=== PATIENT | female | born 1970 | race African-American/Black ===

== ENCOUNTER 2017-12-27 08:27 | Emergency (ER) | payer BC, OTHER ==
[~2017-12-27] VITALS: Ht 160 cm; Wt 70.6 kg
[2017-12-27 08:28] VITALS: BP 149/91
[2017-12-27] MEDS ORDERED: KETOROLAC 30 MG/1 ML IM ONE (09:00)
[2017-12-27] MEDS ORDERED: KETOROLAC 30 MG/1 ML ONE (09:02)
== END 2017-12-27 10:19 | disposition home or self-care (01) ==
LOC: ED 09:20
DX: S83.412A Sprain of medial collateral ligament of left knee, initial encounter (principal); M25.561 Pain in right knee; I10 Essential (primary) hypertension; W01.0XXA Fall on same level from slipping, tripping and stumbling without subsequent striking against object, initial encounter; Y93.89 Activity, other specified; Y92.89 Other specified places as the place of occurrence of the external cause; Y99.8 Other external cause status
CPT/HCPCS: 73564; 96372; 99284; J1885

== ENCOUNTER 2018-01-06 12:11 | Emergency (ER) | payer OTHER ==
[~2018-01-06] VITALS: Ht 160 cm; Wt 73.0 kg
[2018-01-06] MEDS ORDERED: METHOCARBAMOL 750 MG TABLET ONE (12:57)
[2018-01-06] MEDS ORDERED: KETOROLAC 30 MG/1 ML ONE (12:57)
[2018-01-06 13:45] VITALS: BP 112/64
[2018-01-06] MEDS ORDERED: KETOROLAC 60 MG/2 ML IM ONE (14:00)
[2018-01-06] MEDS ORDERED: METHOCARBAMOL 750 MG TABLET PO ONE (14:00)
== END 2018-01-06 13:47 | disposition home or self-care (01) ==
LOC: ED 13:30
DX: S39.012A Strain of muscle, fascia and tendon of lower back, initial encounter (principal); S46.812A Strain of other muscles, fascia and tendons at shoulder and upper arm level, left arm, initial encounter; I10 Essential (primary) hypertension; V49.49XA Driver injured in collision with other motor vehicles in traffic accident, initial encounter; Y93.89 Activity, other specified; Y92.89 Other specified places as the place of occurrence of the external cause; Y99.8 Other external cause status; D25.9 Leiomyoma of uterus, unspecified
CPT/HCPCS: 72110; 73030; 96372; 99284; J1885

== ENCOUNTER → 2018-05-16 | Outpatient (CLI) | payer OTHER | END | disposition home or self-care (01) | LOC: RAD 10:26 | PROVIDERS: ATTEND Neurological Surgery | DX: M50.00 Cervical disc disorder with myelopathy, unspecified cervical region (principal); I10 Essential (primary) hypertension | CPT/HCPCS: 72050 ==

== ENCOUNTER → 2018-06-23 | Outpatient (CLI) | payer OTHER | END | disposition home or self-care (01) | LOC: RAD 09:33 | PROVIDERS: ATTEND Neurological Surgery | DX: M50.00 Cervical disc disorder with myelopathy, unspecified cervical region (principal) | CPT/HCPCS: 72050 ==

== ENCOUNTER → 2018-07-26 | Outpatient (CLI) | payer OTHER | END | disposition home or self-care (01) | LOC: RAD 16:16 | PROVIDERS: ATTEND Neurological Surgery | DX: M50.00 Cervical disc disorder with myelopathy, unspecified cervical region (principal) | CPT/HCPCS: 72040 ==

== ENCOUNTER → 2018-10-17 | Outpatient (CLI) | payer OTHER | END | disposition home or self-care (01) | LOC: RAD 09:24 | PROVIDERS: ATTEND Neurological Surgery | DX: M47.12 Other spondylosis with myelopathy, cervical region (principal); M50.00 Cervical disc disorder with myelopathy, unspecified cervical region | CPT/HCPCS: 72050 ==

== ENCOUNTER 2018-12-07 13:08 | Inpatient (IN) | payer OTHER ==
[~2018-12-07] VITALS: Ht 162.6 cm; Wt 79.4 kg
[2018-12-07] MEDS ORDERED: KETOROLAC 30 MG/1 ML IVPush ONE (14:30)
[2018-12-07] MEDS ORDERED: HYDROmorphone 1 MG/ML, 1ML ONE ×2 (14:32→15:55)
[2018-12-07] MEDS ORDERED: KETOROLAC 30 MG/1 ML ONE (14:32)
[2018-12-07] MEDS: HYDROmorphone 2 MG/ML, 1ML IVPush PRN ×2 (14:50→15:57)
[2018-12-07 14:51] LABS: ALBUMIN 2.8 g/dL (3.4-5.0); ANION GAP 7 mmol/L (5-15); CALCIUM 9.1 mg/dL (8.5-10.1); CHLORIDE 100 mmol/L (98-107); CREATININE 1.08 mg/dL (0.55-1.02)
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
[2018-12-07 14:57] LABS: TROPONIN I 0.163 ng/mL (0.000-0.045)
[2018-12-07 15:17] LABS: MD YES; MEAN CORPUSCULAR HEMOGLOBIN 19.7 pg (27.0-34.8); MEAN CORPUSCULAR HGB CONC 30.1 g/dL (32.4-35.8); MEAN CORPUSCULAR VOLUME 65.5 fL (80-100); MEAN PLATELET VOLUME 7.8 fL (7.4-10.4); PLATELET COUNT 343 x10^3/uL (130-400); RED BLOOD COUNT 4.06 x10^6/uL (3.82-5.3); RED CELL DISTRIBUTION WIDTH 21.4 % (9.6-15.2)
[2018-12-07 15:20] LABS: ANISOCYTOSIS 3+; BASOS#(MANUAL) 0.07 x10^3/uL (0-0.1); BASOS% (MANUAL) 1 % (0-1); LYMPH#(MANUAL) 0.46 x10^3/uL (1-3.4); LYMPHS% (MANUAL) 7 % (22-44); MICROCYTOSIS 2+; MONOS#(MANUAL) 0.26 x10^3/uL (0.3-2.7); MONOS% (MANUAL) 4 % (2-9); SCHISTOCYTES 1+; SEG#(MANUAL) 5.81 x10^3/uL (1.8-6.8); SEGS% (MANUAL) 88 % (42-75)
[2018-12-07 15:21] LABS: OVALOCYTES 1+; POLYCHROMASIA 1+; TARGET CELLS 1+
[2018-12-07 15:22] LABS: HYPOCHROMIA 2+
[2018-12-07 15:23] LABS: <PLATELET ESTIMATE> ADEQUATE; <PLT MORPHOLOGY> NORMAL PLT MORPH
--- NOTE | 2018-12-07 15:50 | NUR ---
BREAK RN FOR PRIMARY RN JAQUAN. PT REQUESTING ADDITIONAL PAIN MEDICATION, RATES PAIN 8/10 "FROM MY LOW BACK DOWN TO MY LEFT ANKLE." TO MEDICATE PER MD ORDER. DISCUSSED VITALS WITH DR. CANDELARIA, AWARE OF PT HR, NO NEW ORDERS RECEIVED. VITALS OTHERWISE STABLE. CALL LIGHT IN REACH. FALL PRECAUTIONS IN PLACE. FAMILY AT BEDSIDE
--- NOTE | 2018-12-07 15:51 | NUR ---
PT DENIES URGE TO USE RESTROOM, AWARE UA SAMPLE NEEDED. DISCUSSED WITH DR. CANDELARIA, AWARE PT DENIES URGE TO PROVIDE UA. CONT PULSE OX, BP, CARDIAC MONITORS REMAIN IN PLACE. ST ON MONITOR. CALL LIGHT IN REACH.
--- NOTE | 2018-12-07 16:13 | NUR ---
BREAK RN. PT IN CT.
--- NOTE | 2018-12-07 16:15 | NUR ---
BREAK RN. BEDSIDE REPORT AND CARE BACK TO PRIMARY RN JAQUAN AT THIS TIME.
[2018-12-07] MEDS ORDERED: HEPARIN 25,000 UNITS/500ML PMX 500 ML ONE (16:21)
[2018-12-07] MEDS ORDERED: OMNIPAQUE 350 MG/ML, 100ML BOTTLE ONE (16:29)
[2018-12-07] MEDS ORDERED: HEPARIN 5,000 UNITS/ML, 1ML IV PRN (16:30)
[2018-12-07] MEDS ORDERED: HEPARIN 25,000 UNITS/500ML PMX 500 ML IV PRN (16:30)
[2018-12-07] MEDS ORDERED: HEPARIN 5,000 UNITS/ML, 1ML IV ONE ×2 (16:30→20:00)
[2018-12-07] MEDS ORDERED: HEPARIN 5,000 UNITS/ML, 1ML ONE (16:38)
--- NOTE | 2018-12-07 17:00 | NUR ---
Heparin started per protocol. Verified by EVANGELINA Cárdenas.
--- NOTE | 2018-12-07 17:20 | NUR ---
HEPARIN STOPPED PER ERMD.
--- NOTE | 2018-12-07 17:25 | NUR ---
SECOND IV STARTED.
--- NOTE | 2018-12-07 17:28 | NUR ---
HOSPITALIST AT THE BEDSIDE.
[2018-12-07] MEDS ORDERED: ACETAMINOPHEN 325 MG TABLET PO PRN (18:00)
[2018-12-07] MEDS ORDERED: ALTEPLASE 100 MG in BAG 1 EACH IV ONE (18:00)
[2018-12-07] MEDS ORDERED: LIDODERM 5% PATCH TD PRN (18:00)
--- NOTE | 2018-12-07 18:00 | NUR ---
REPORT TO EVANGELINA CESPEDES. RUBINA TO START TPA IN CCU. PHARMACY AWARE. PHARMACY TO BRING TPA TO CCU.
[2018-12-07 18:04] LABS: INTERNATIONAL NORMALIZED RATIO 0.99 (0.93-1.1); PROTHROMBIN TIME 10.4 Seconds (9.6-11.5)
--- NOTE | 2018-12-07 18:05 | NUR ---
PT TO FLOOR VIA GURNEY USING WARP TYING MACHINE KNOTTER.
[2018-12-07 18:10] LABS: % IRON SATURATION 3 % (20-55); IRON LEVEL 12 mcg/dL (50-170); TOTAL IRON BINDING CAPACITY 356 mcg/dL (250-450)
[2018-12-07] MEDS: SODIUM CHLORIDE 0.9% 1,000 ML IV SCH (18:40)
[2018-12-07] MEDS ORDERED: HEPARIN PROTOCOL IIB/IIIA POST-LYTIC MC PRN (20:00)
[2018-12-07] MEDS: HEPARIN 25,000 UNITS/500ML PMX 500 ML IV PRN (22:06)
[2018-12-07] MEDS: FAMOTIDINE 20 MG/2 ML IVPush SCH (22:06)
[2018-12-08] MEDS: SODIUM CHLORIDE 0.9% 1,000 ML IV SCH (03:46)
[2018-12-08 04:42] LABS: MEAN CORPUSCULAR HEMOGLOBIN 19.5 pg (27.0-34.8); MEAN CORPUSCULAR VOLUME 65.1 fL (80-100); MEAN PLATELET VOLUME 7.9 fL (7.4-10.4); PLATELET COUNT 336 x10^3/uL (130-400); RED BLOOD COUNT 3.73 x10^6/uL (3.82-5.3); RED CELL DISTRIBUTION WIDTH 20.8 % (9.6-15.2)
[2018-12-08 04:55] LABS: ALANINE AMINOTRANSFERASE 19 U/L (12-78); ALBUMIN 2.4 g/dL (3.4-5.0); ANION GAP 6 mmol/L (5-15); CALCIUM 8.3 mg/dL (8.5-10.1); CHLORIDE 104 mmol/L (98-107)
[2018-12-08 05:00] LABS: ALKALINE PHOSPHATASE 119 U/L (45-117); BILIRUBIN,TOTAL 0.4 mg/dL (0.2-1.0); TOTAL PROTEIN 6.3 g/dL (6.4-8.2); TROPONIN I 0.097 ng/mL (0.000-0.045)
[2018-12-08 05:42] LABS: MD YES
[2018-12-08 05:45] LABS: ANISOCYTOSIS 3+; LYMPH#(MANUAL) 0.59 x10^3/uL (1-3.4); LYMPHS% (MANUAL) 9 % (22-44); MICROCYTOSIS 2+; MONOS#(MANUAL) 0.33 x10^3/uL (0.3-2.7); MONOS% (MANUAL) 5 % (2-9); POLYCHROMASIA 1+; SEG#(MANUAL) 5.68 x10^3/uL (1.8-6.8); SEGS% (MANUAL) 86 % (42-75)
[2018-12-08 05:46] LABS: HYPOCHROMIA 1+; TARGET CELLS 1+; TEAR DROPS 1+
[2018-12-08 05:47] LABS: <PLATELET ESTIMATE> ADEQUATE; <PLT MORPHOLOGY> NORMAL PLT MORPH
[2018-12-08] MEDS: FAMOTIDINE 20 MG/2 ML IVPush SCH (09:07)
[2018-12-08] MEDS ORDERED: LIDOCAINE-MPF 1%, 5ML ONE (11:09)
[2018-12-08] MEDS ORDERED: FENTANYL PF 100 MCG/2ML ONE (13:15)
[2018-12-08] MEDS: HYDROmorphone 2 MG/ML, 1ML IVPush PRN ×2 (17:40→21:31)
[2018-12-08 20:00] VITALS: BP 128/88
[2018-12-08] MEDS: FAMOTIDINE 20 MG TABLET PO SCH (20:17)
[2018-12-08] MEDS: HEPARIN 25,000 UNITS/500ML PMX 500 ML IV PRN (23:45)
[2018-12-09] VITALS (9 sets, daily range): BP systolic 105–147; BP diastolic 68–97
[2018-12-09 01:35] LABS: MICROSCOPIC INDICATED
[2018-12-09 01:38] LABS: CULTURE INDICATED? NO
[2018-12-09] MEDS: SODIUM CHLORIDE 0.9% 1,000 ML IV SCH (02:37)
[2018-12-09 07:56] LABS: MEAN CORPUSCULAR HEMOGLOBIN 19.3 pg (27.0-34.8); MEAN CORPUSCULAR VOLUME 64.2 fL (80-100); MEAN PLATELET VOLUME 7.8 fL (7.4-10.4); PLATELET COUNT 373 x10^3/uL (130-400); RED BLOOD COUNT 3.52 x10^6/uL (3.82-5.3); RED CELL DISTRIBUTION WIDTH 22.1 % (9.6-15.2)
[2018-12-09 08:00] LABS: ALANINE AMINOTRANSFERASE 16 U/L (12-78); ALBUMIN 2.4 g/dL (3.4-5.0); ANION GAP 5 mmol/L (5-15); CALCIUM 8.5 mg/dL (8.5-10.1); CHLORIDE 111 mmol/L (98-107); CREATININE 0.94 mg/dL (0.55-1.02)
[2018-12-09 08:03] LABS: ALKALINE PHOSPHATASE 106 U/L (45-117); BILIRUBIN,TOTAL 0.2 mg/dL (0.2-1.0); TOTAL PROTEIN 5.9 g/dL (6.4-8.2)
[2018-12-09] MEDS: FAMOTIDINE 20 MG TABLET PO SCH ×2 (08:11→20:09)
[2018-12-09] MEDS: HYDROmorphone 2 MG/ML, 1ML IVPush PRN ×6 (08:11→23:14)
[2018-12-09 08:26] LABS: BASOPHILS # (AUTO) 0.01 x10^3/uL (0-0.1); BASOPHILS % (AUTO) 0 % (0-1); EOSINOPHILS # (AUTO) 0.01 x10^3/uL (0-0.4); EOSINOPHILS % (AUTO) 0 % (1-7); LYMPHOCYTES # (AUTO) 1.99 x10^3/uL (1-3.4); LYMPHOCYTES % (AUTO) 27 % (22-44); MD SCAN; MONOCYTES # (AUTO) 0.64 x10^3/uL (0.2-0.8); MONOCYTES % (AUTO) 9 % (2-9); NEUTROPHILS # (AUTO) 4.77 x10^3/uL (1.8-6.8); NEUTROPHILS % (AUTO) 64 % (42-75)
[2018-12-09] MEDS: HEPARIN 5,000 UNITS/ML, 1ML IV PRN ×2 (10:41→23:37)
[2018-12-09] MEDS ORDERED: LORazepam 2 MG/ML, 1ML IVPush PRN (13:30)
[2018-12-09] MEDS ORDERED: ONDANSETRON 2MG/ML, 2ML IVPush PRN (13:30)
[2018-12-09] MEDS ORDERED: GADOBUTROL 7.5 MMOL/7.5 ML VIAL ONE (14:33)
[2018-12-09] MEDS ORDERED: PROMETHAZINE 25 MG/ML, 1ML IV PRN (16:00)
[2018-12-09] MEDS: HEPARIN 25,000 UNITS/500ML PMX 500 ML IV PRN (23:39)
[2018-12-10] MEDS: SODIUM CHLORIDE 0.9% 1,000 ML IV SCH ×2 (00:41→21:16)
[2018-12-10 01:26] VITALS: BP 114/78
[2018-12-10] MEDS: HYDROmorphone 2 MG/ML, 1ML IVPush PRN ×3 (02:24→11:31)
[2018-12-10 05:52] LABS: MEAN CORPUSCULAR HEMOGLOBIN 20.7 pg (27.0-34.8); MEAN CORPUSCULAR HGB CONC 30.6 g/dL (32.4-35.8); MEAN CORPUSCULAR VOLUME 67.8 fL (80-100); MEAN PLATELET VOLUME 6.9 fL (7.4-10.4); PLATELET COUNT 386 x10^3/uL (130-400); RED BLOOD COUNT 3.64 x10^6/uL (3.82-5.3); RED CELL DISTRIBUTION WIDTH 22.9 % (9.6-15.2)
[2018-12-10 05:55] LABS: ANION GAP 4 mmol/L (5-15); CALCIUM 8.3 mg/dL (8.5-10.1); CHLORIDE 108 mmol/L (98-107); CREATININE 0.98 mg/dL (0.55-1.02)
[2018-12-10 06:34] VITALS: BP 117/80
[2018-12-10 06:44] LABS: MD YES
[2018-12-10 06:46] LABS: ANISOCYTOSIS 3+; BASOS#(MANUAL) 0.15 x10^3/uL (0-0.1); BASOS% (MANUAL) 2 % (0-1); EOS#(MANUAL) 0.15 x10^3/uL (0.0-0.4); EOS% (MANUAL) 2 % (1-7); LYMPH#(MANUAL) 2.93 x10^3/uL (1-3.4); LYMPHS% (MANUAL) 39 % (22-44); MICROCYTOSIS 2+; MONOS% (MANUAL) 4 % (2-9); SEG#(MANUAL) 3.98 x10^3/uL (1.8-6.8); SEGS% (MANUAL) 53 % (42-75)
[2018-12-10 06:47] LABS: <PLATELET ESTIMATE> ADEQUATE; <PLT MORPHOLOGY> NORMAL PLT MORPH; HYPOCHROMIA 1+; POLYCHROMASIA 1+; TARGET CELLS 1+; TEAR DROPS 1+
[2018-12-10 06:48] LABS: OVALOCYTES 1+; SCHISTOCYTES 1+
[2018-12-10] MEDS ORDERED: MIDAZOLAM 1 MG/ML, 2ML ONE (08:17)
[2018-12-10] MEDS ORDERED: FENTANYL PF 100 MCG/2ML ONE (08:17)
[2018-12-10] MEDS ORDERED: MISOPROSTOL 200 MCG TABLET ONE (08:27)
[2018-12-10] MEDS ORDERED: METHYLERGONOVINE 0.2 MG/ML IM ONE (08:27)
[2018-12-10] MEDS ORDERED: SILVER NITRATE STICK TP ONE (08:27)
[2018-12-10] MEDS ORDERED: OXYTOCIN 10 UNITS/ML, 1ML ONE (08:27)
[2018-12-10] MEDS ORDERED: HYDROmorphone 2 MG/ML, 1ML IVPush PRN (08:30)
[2018-12-10] MEDS ORDERED: ACETAMINOPHEN 325 MG TABLET PO PRN (08:30)
[2018-12-10] MEDS ORDERED: MEPERIDINE/PF 25MG/0.5ML IVPush PRN (08:30)
[2018-12-10] MEDS ORDERED: hydrALAzine 20 MG/ML, 1ML IV PRN (08:30)
[2018-12-10] MEDS ORDERED: PROMETHAZINE 25 MG/ML, 1ML IV PRN (08:30)
[2018-12-10] MEDS ORDERED: ONDANSETRON 2MG/ML, 2ML IV PRN (08:30)
[2018-12-10] MEDS ORDERED: LABETALOL 5MG/ML, 20ML IV PRN (08:30)
[2018-12-10] MEDS ORDERED: OXYcodone 5 MG/5 ML ORAL.SOL UDC PO PRN (08:30)
[2018-12-10] MEDS ORDERED: VASOPRESSIN 20 UNIT/ML, 1ML ONE (09:18)
[2018-12-10] MEDS ORDERED: SODIUM CHLORIDE 0.9% 100 ML ONE (09:18)
[2018-12-10] MEDS ORDERED: SUCCINYLCHOLINE 20 MG/ML, 10ML ONE (09:25)
[2018-12-10] MEDS ORDERED: ROCURONIUM 10 MG/ML,10ML ONE (09:25)
[2018-12-10] MEDS ORDERED: DEXAMETHASONE 4 MG/ML, 1ML ONE (09:32)
[2018-12-10] MEDS ORDERED: CEFAZOLIN 1,000 MG ONE ×2 (09:32)
[2018-12-10] MEDS ORDERED: ONDANSETRON 2MG/ML, 2ML ONE (09:55)
[2018-12-10] MEDS ORDERED: PROPOFOL 10 MG/ML, 20ML ONE (09:55)
[2018-12-10] MEDS: FAMOTIDINE 20 MG TABLET PO SCH ×2 (11:48→20:32)
[2018-12-10] MEDS: OXYcodone/APAP 5/325MG TABLET PO PRN ×2 (14:31→18:35)
[2018-12-10 15:20] VITALS: BP 135/80
[2018-12-10] MEDS: HEPARIN 25,000 UNITS/500ML PMX 500 ML IV PRN (18:04)
[2018-12-10 18:59] VITALS: BP 133/96
[2018-12-11] MEDS: OXYcodone/APAP 5/325MG TABLET PO PRN ×4 (00:01→18:02)
[2018-12-11 00:34] VITALS: BP 145/93
[2018-12-11 05:35] LABS: ANION GAP 5 mmol/L (5-15); CALCIUM 8.8 mg/dL (8.5-10.1); CHLORIDE 108 mmol/L (98-107)
[2018-12-11 05:36] LABS: CREATININE 0.88 mg/dL (0.55-1.02)
[2018-12-11 05:49] LABS: MEAN CORPUSCULAR HEMOGLOBIN 20.8 pg (27.0-34.8); MEAN CORPUSCULAR HGB CONC 30.7 g/dL (32.4-35.8); MEAN CORPUSCULAR VOLUME 67.7 fL (80-100); MEAN PLATELET VOLUME 7.2 fL (7.4-10.4); PLATELET COUNT 397 x10^3/uL (130-400); RED BLOOD COUNT 3.51 x10^6/uL (3.82-5.3); RED CELL DISTRIBUTION WIDTH 23.3 % (9.6-15.2)
[2018-12-11 06:18] LABS: MD YES
[2018-12-11 06:25] LABS: BAND#(MANUAL) 0.09 x10^3/uL; BANDS%(MANUAL) 1 % (0-7); LYMPH#(MANUAL) 1.36 x10^3/uL (1-3.4); LYMPHS% (MANUAL) 16 % (22-44); MONOS% (MANUAL) 7 % (2-9); SEG#(MANUAL) 6.46 x10^3/uL (1.8-6.8); SEGS% (MANUAL) 76 % (42-75)
[2018-12-11 06:26] LABS: ANISOCYTOSIS 2+; HYPOCHROMIA 2+; MICROCYTOSIS 1+; POLYCHROMASIA 1+
[2018-12-11 06:27] LABS: <PLATELET ESTIMATE> ADEQUATE; <PLT MORPHOLOGY> NORMAL PLT MORPH; SCHISTOCYTES 1+; TEAR DROPS 1+
[2018-12-11 06:53] VITALS: BP_SYST 144; BP_SYST 147; BP_DIAS 91; BP_DIAS 92
[2018-12-11] MEDS: FAMOTIDINE 20 MG TABLET PO SCH ×2 (08:36→20:51)
[2018-12-11] MEDS: IRON SUCROSE COMPLEX 100MG/5ML IV SCH (09:42)
[2018-12-11 13:37] VITALS: BP 156/100
[2018-12-11] MEDS: HEPARIN 25,000 UNITS/500ML PMX 500 ML IV PRN (14:00)
[2018-12-11] MEDS ORDERED: POLYETHYLENE GLYCOL 17 GM PACKET ONE (18:11)
[2018-12-11] MEDS: POLYETHYLENE GLYCOL 17 GM PACKET NG SCH (18:15)
[2018-12-11 19:00] VITALS: BP 151/108
[2018-12-12 00:23] VITALS: BP 157/100
[2018-12-12] MEDS ORDERED: ENALAPRILAT 1.25 MG/ML, 2ML IV PRN (01:30)
[2018-12-12 05:30] LABS: ANION GAP 4 mmol/L (5-15); CALCIUM 8.8 mg/dL (8.5-10.1); CHLORIDE 110 mmol/L (98-107); CREATININE 0.95 mg/dL (0.55-1.02)
[2018-12-12 05:58] VITALS: BP 175/111
[2018-12-12 06:11] LABS: MEAN CORPUSCULAR HEMOGLOBIN 20.7 pg (27.0-34.8); MEAN CORPUSCULAR HGB CONC 30.7 g/dL (32.4-35.8); MEAN CORPUSCULAR VOLUME 67.7 fL (80-100); MEAN PLATELET VOLUME 7.6 fL (7.4-10.4); PLATELET COUNT 425 x10^3/uL (130-400); RED BLOOD COUNT 3.59 x10^6/uL (3.82-5.3); RED CELL DISTRIBUTION WIDTH 24.3 % (9.6-15.2)
[2018-12-12 06:20] VITALS: BP 154/104
[2018-12-12 06:27] LABS: MD YES
[2018-12-12 06:28] LABS: BANDS%(MANUAL) 1 % (0-7); EOS% (MANUAL) 1 % (1-7); METAMYELOCYTES# (MANUAL) 0.19 x10^3/uL (0-0); METAMYELOCYTES% (MANUAL) 2 % (0-1); MONOS#(MANUAL) 0.58 x10^3/uL (0.3-2.7); MONOS% (MANUAL) 6 % (2-9); MYELOCYTES% (MANUAL) 1 % (0-0); NRBC % (MANUAL) 2 % (0-1)
[2018-12-12 06:29] LABS: LYMPH#(MANUAL) 2.78 x10^3/uL (1-3.4); LYMPHS% (MANUAL) 29 % (22-44); SEG#(MANUAL) 5.76 x10^3/uL (1.8-6.8); SEGS% (MANUAL) 60 % (42-75)
[2018-12-12 06:30] LABS: ANISOCYTOSIS 2+; HYPOCHROMIA 2+; MICROCYTOSIS 2+; OVALOCYTES 1+; POLYCHROMASIA 1+
[2018-12-12 06:31] LABS: ECHINOCYTES 1+; SCHISTOCYTES 1+; TEAR DROPS 1+
[2018-12-12 06:32] LABS: <PLATELET ESTIMATE> INCREASED; <PLT MORPHOLOGY> NORMAL PLT MORPH
[2018-12-12 08:15] VITALS: BP 146/100
[2018-12-12] MEDS: IRON SUCROSE COMPLEX 100MG/5ML IV SCH (09:20)
[2018-12-12] MEDS: POLYETHYLENE GLYCOL 17 GM PACKET NG SCH (09:20)
[2018-12-12] MEDS: FAMOTIDINE 20 MG TABLET PO SCH ×2 (09:20→20:28)
[2018-12-12] MEDS ORDERED: MAGNESIUM HYDROXIDE 8%, 30ML UDC PO PRN (09:30)
[2018-12-12] MEDS: HYDROmorphone 2 MG/ML, 1ML IVPush PRN ×2 (10:45→16:43)
[2018-12-12] MEDS: HEPARIN 25,000 UNITS/500ML PMX 500 ML IV PRN (11:04)
[2018-12-12 13:22] VITALS: BP 149/97
[2018-12-12 15:37] LABS: OCCULT BLOOD NEGATIVE (NEGATIVE)
[2018-12-12 18:45] VITALS: BP 132/85
[2018-12-12] MEDS: OXYcodone/APAP 5/325MG TABLET PO PRN (20:33)
[2018-12-13 01:19] VITALS: BP 130/87
[2018-12-13] MEDS: HEPARIN 25,000 UNITS/500ML PMX 500 ML IV PRN (05:28)
[2018-12-13 05:48] LABS: MEAN CORPUSCULAR HEMOGLOBIN 20.5 pg (27.0-34.8); MEAN CORPUSCULAR HGB CONC 30.3 g/dL (32.4-35.8); MEAN CORPUSCULAR VOLUME 67.5 fL (80-100); MEAN PLATELET VOLUME 7.1 fL (7.4-10.4); PLATELET COUNT 512 x10^3/uL (130-400); RED BLOOD COUNT 3.89 x10^6/uL (3.82-5.3); RED CELL DISTRIBUTION WIDTH 24.5 % (9.6-15.2)
[2018-12-13 06:07] LABS: MD YES
[2018-12-13 06:08] LABS: BANDS%(MANUAL) 1 % (0-7); EOS% (MANUAL) 2 % (1-7); HYPOCHROMIA 2+; LYMPH#(MANUAL) 2.48 x10^3/uL (1-3.4); LYMPHS% (MANUAL) 25 % (22-44); MICROCYTOSIS 2+; MONOS#(MANUAL) 0.59 x10^3/uL (0.3-2.7); MONOS% (MANUAL) 6 % (2-9); NRBC % (MANUAL) 1 % (0-1); OVALOCYTES 1+; POLYCHROMASIA 1+; SEG#(MANUAL) 6.53 x10^3/uL (1.8-6.8); SEGS% (MANUAL) 66 % (42-75)
[2018-12-13 06:09] LABS: TEAR DROPS 1+
[2018-12-13 06:11] LABS: ANISOCYTOSIS 2+; SCHISTOCYTES 1+
[2018-12-13 06:12] LABS: <PLATELET ESTIMATE> INCREASED; <PLT MORPHOLOGY> NORMAL PLT MORPH
[2018-12-13 06:39] VITALS: BP 148/96
[2018-12-13] MEDS: IRON SUCROSE COMPLEX 100MG/5ML IV SCH (08:00)
[2018-12-13] MEDS: FAMOTIDINE 20 MG TABLET PO SCH (08:00)
[2018-12-13] MEDS: OXYcodone/APAP 5/325MG TABLET PO PRN (08:01)
[2018-12-13] MEDS ORDERED: RIVAROXABAN 15 MG TABLET PO SCH (10:00)
[2018-12-13 12:14] VITALS: BP 143/94
[2018-12-13] MEDS ORDERED: FERR-46 PO (12:54)
[2018-12-13] MEDS ORDERED: OXYC-302 PO ×2 (12:54→13:07)
[2018-12-13] MEDS ORDERED: FAMO20TA7 PO (12:54)
[2018-12-13] MEDS ORDERED: RIVA1TAB PO (12:54)
== END 2018-12-13 14:49 | disposition home or self-care (01) | DRG 252 ==
LOC: ED 16:36 → EDIP 17:02 → CSU 18:12 → 5SO 12-08 18:35 → 3NE 12-11 15:12
PROVIDERS: ADMIT Hospitalist; ATTEND Hospitalist
PROC: 0UDB7ZZ Extraction of Endometrium, Via Natural or Artificial Opening (ICD-10-PCS; principal; 2018-12-07)
PROC: 3E03317 Introduction of Other Thrombolytic into Peripheral Vein, Percutaneous Approach (ICD-10-PCS; 2018-12-07)
PROC: 06H03DZ Insertion of Intraluminal Device into Inferior Vena Cava, Percutaneous Approach (ICD-10-PCS; 2018-12-08)
PROC: 30233N1 Transfusion of Nonautologous Red Blood Cells into Peripheral Vein, Percutaneous Approach (ICD-10-PCS; 2018-12-09)
DX: I82.402 Acute embolism and thrombosis of unspecified deep veins of left lower extremity (principal); I26.92 Saddle embolus of pulmonary artery without acute cor pulmonale; D62 Acute posthemorrhagic anemia; D25.9 Leiomyoma of uterus, unspecified; F41.1 Generalized anxiety disorder; D63.8 Anemia in other chronic diseases classified elsewhere; G89.29 Other chronic pain; I07.1 Rheumatic tricuspid insufficiency; I10 Essential (primary) hypertension; I48.91 Unspecified atrial fibrillation; M41.9 Scoliosis, unspecified; M54.42 Lumbago with sciatica, left side; N95.0 Postmenopausal bleeding; R09.02 Hypoxemia; Z80.49 Family history of malignant neoplasm of other genital organs; Z85.42 Personal history of malignant neoplasm of other parts of uterus
CPT/HCPCS: 36415; 72110; 99291; J3490; 37191; 71045; 71275; 72197; 76830; 80048; 80053; 81001; 82040; 82272; 83540; 83550; 83735; 83880; 84100; 84484; 84703; 85014; 85018; 85025; 85379; 85520; 85610; 85730; 86850; 86900; 86923; 87081; 88305; 93005; 93306; 93970; 96374; A9585; C1880; G0378; J0690; J1100; J1170; J1644; J1756; J1885; J2250; J2405; J2550; J2704; J2997; J3010; Q9967; J0330; J2210; J2590; J7030; J7512; P9016

== ENCOUNTER 2018-12-31 10:22 | Inpatient (IN) | payer OTHER ==
[~2018-12-31] VITALS: Ht 162.6 cm; Wt 73.0 kg
[~2018-12-31 10:22] MED LIST: FAMO20TA7 PO; FERR-46 PO; OXYC-302 PO; RIVA1TAB PO
[2018-12-31] MEDS ORDERED: HYDROmorphone 1 MG/ML, 1ML AMP ONE (11:17)
--- NOTE | 2018-12-31 11:26 | NUR ---
IV established. Patient medicated per MAR. Patient has strong pedal pulse with doppler.
[2018-12-31] MEDS ORDERED: HYDROcodone/APAP 10/325 MG TABLET PO ONE (11:30)
[2018-12-31] MEDS ORDERED: HYDROmorphone 1 MG/ML, 1ML AMP IV ONE (11:30)
--- NOTE | 2018-12-31 11:38 | NUR ---
US at bedside.
[2018-12-31 11:39] LABS: MEAN CORPUSCULAR HEMOGLOBIN 22.2 pg (27.0-34.8); MEAN CORPUSCULAR HGB CONC 30.7 g/dL (32.4-35.8); MEAN CORPUSCULAR VOLUME 72.4 fL (80-100); MEAN PLATELET VOLUME 7.7 fL (7.4-10.4); PLATELET COUNT 331 x10^3/uL (130-400); RED BLOOD COUNT 4.26 x10^6/uL (3.82-5.3); RED CELL DISTRIBUTION WIDTH 30.5 % (9.6-15.2)
[2018-12-31 11:46] LABS: INTERNATIONAL NORMALIZED RATIO 1.01 (0.93-1.1); PROTHROMBIN TIME 10.6 Seconds (9.6-11.5)
[2018-12-31] MEDS ORDERED: ONDANSETRON 2MG/ML, 2ML ONE (11:47)
--- NOTE | 2018-12-31 11:52 | NUR ---
Patient medicated per MAR for nausea.
[2018-12-31 11:53] LABS: CHLORIDE 111 mmol/L (98-107)
[2018-12-31 12:00] LABS: MD MORPH REVIEW ONLY
[2018-12-31] MEDS ORDERED: ONDANSETRON 2MG/ML, 2ML IVPush ONE (12:00)
[2018-12-31 12:01] LABS: ALANINE AMINOTRANSFERASE 21 U/L (12-78); ALBUMIN 3.4 g/dL (3.4-5.0); ALKALINE PHOSPHATASE 122 U/L (45-117); ANION GAP 5 mmol/L (5-15); BASOPHILS # (AUTO) 0.03 x10^3/uL (0-0.1); BASOPHILS % (AUTO) 1 % (0-1); BILIRUBIN,TOTAL 0.4 mg/dL (0.2-1.0); CALCIUM 9.1 mg/dL (8.5-10.1); CREATININE 0.96 mg/dL (0.55-1.02); EOSINOPHILS # (AUTO) 0.06 x10^3/uL (0-0.4); EOSINOPHILS % (AUTO) 2 % (1-7); LYMPHOCYTES % (AUTO) 32 % (22-44); MONOCYTES % (AUTO) 12 % (2-9); NEUTROPHILS # (AUTO) 1.89 x10^3/uL (1.8-6.8); NEUTROPHILS % (AUTO) 54 % (42-75); TOTAL PROTEIN 7.3 g/dL (6.4-8.2)
[2018-12-31 12:10] LABS: ANISOCYTOSIS 2+
[2018-12-31 12:11] LABS: HYPOCHROMIA 2+; MICROCYTOSIS 2+; OVALOCYTES 1+; TEAR DROPS 1+
[2018-12-31 12:12] LABS: <PLATELET ESTIMATE> ADEQUATE; <PLT MORPHOLOGY> NORMAL PLT MORPH
[2018-12-31 12:13] LABS: SPHEROCYTES 1+
[2018-12-31] MEDS ORDERED: PROMETHAZINE 25 MG/ML, 1ML ONE (12:24)
--- NOTE | 2018-12-31 12:26 | NUR ---
PT REPORTS INCREASE IN NAUSEA. MD MADE AWARE.
[2018-12-31] MEDS ORDERED: HEPARIN 5,000 UNITS/ML, 1ML IV ONE (12:30)
[2018-12-31] MEDS ORDERED: PROMETHAZINE 25 MG/ML, 1ML IM ONE (12:30)
[2018-12-31] MEDS ORDERED: HEPARIN 5,000 UNITS/ML, 1ML ONE (12:37)
[2018-12-31] MEDS ORDERED: HEPARIN 25,000 UNITS/500ML PMX 500 ML ONE (12:37)
--- NOTE | 2018-12-31 12:51 | NUR ---
Patient to CT. T
[2018-12-31 13:12] LABS: ABSOLUTE RETICS # 0.086 x10^6/uL (0.5-2.5); RETICULOCYTE COUNT % 2.06 % (0.5-1.5)
[2018-12-31 13:17] LABS: RED BLOOD COUNT 4.2 x10^6/uL (3.82-5.3)
[2018-12-31] MEDS: HEPARIN 25,000 UNITS/500ML PMX 500 ML IV PRN (13:18)
--- NOTE | 2018-12-31 13:27 | NUR ---
Heparin infusing. Patient/family updated on POC. VSS at this time. Pain controlled.
[2018-12-31] MEDS ORDERED: hydrALAzine 20 MG/ML, 1ML IVPush PRN (14:00)
[2018-12-31] MEDS ORDERED: ACETAMINOPHEN 325 MG TABLET PO PRN (14:00)
[2018-12-31] MEDS ORDERED: GUAIFENESIN/COD200MG-20MG/10ML LIQUID PO PRN (14:00)
--- NOTE | 2018-12-31 14:00 | NUR ---
Report to Bella HUTCHINSON.
--- NOTE | 2018-12-31 15:06 | NUR ---
SBAR TELEPHONE HAND-OFF REPORT GIVEN TO EVANGELINA KEY. PATIENT READY TO GO TO HOSPITAL ROOM.
[2018-12-31 15:41] VITALS: BP 142/95
[2018-12-31] MEDS ORDERED: HYDR-3245 PO (16:20)
[2018-12-31] MEDS: D5%-0.45NACL+KCL 20MEQ 1,000 ML IV SCH (16:42)
[2018-12-31] MEDS: OXYcodone IR 5MG TABLET PO PRN (18:27)
[2018-12-31] MEDS: HEPARIN 5,000 UNITS/ML, 1ML IV PRN (20:23)
[2018-12-31 20:30] VITALS: BP 122/81
[2018-12-31] MEDS: morphine SULFATE 10 MG/ML, 1ML IVPush PRN (20:33)
[2019-01-01 03:07] LABS: MEAN CORPUSCULAR HGB CONC 31.4 g/dL (32.4-35.8); MEAN CORPUSCULAR VOLUME 73.3 fL (80-100); MEAN PLATELET VOLUME 7.7 fL (7.4-10.4); PLATELET COUNT 276 x10^3/uL (130-400); RED CELL DISTRIBUTION WIDTH 30.7 % (9.6-15.2)
[2019-01-01 03:08] LABS: MD YES
[2019-01-01 03:15] VITALS: BP 120/83
[2019-01-01 03:18] LABS: ANION GAP 5 mmol/L (5-15); CALCIUM 8.5 mg/dL (8.5-10.1); CHLORIDE 108 mmol/L (98-107)
[2019-01-01] MEDS: D5%-0.45NACL+KCL 20MEQ 1,000 ML IV SCH (03:33)
[2019-01-01] MEDS: HEPARIN 5,000 UNITS/ML, 1ML IV PRN ×2 (03:33→17:26)
[2019-01-01] MEDS: OXYcodone IR 5MG TABLET PO PRN ×4 (03:34→17:09)
[2019-01-01 03:47] LABS: LYMPH#(MANUAL) 1.48 x10^3/uL (1-3.4); LYMPHS% (MANUAL) 39 % (22-44); MONOS#(MANUAL) 0.23 x10^3/uL (0.3-2.7); MONOS% (MANUAL) 6 % (2-9); SEG#(MANUAL) 2.09 x10^3/uL (1.8-6.8); SEGS% (MANUAL) 55 % (42-75)
[2019-01-01 03:48] LABS: ANISOCYTOSIS 2+; MICROCYTOSIS 2+
[2019-01-01 03:49] LABS: <PLATELET ESTIMATE> ADEQUATE; <PLT MORPHOLOGY> NORMAL PLT MORPH
[2019-01-01 08:17] VITALS: BP 130/90
[2019-01-01] MEDS ORDERED: OMNIPAQUE 350 MG/ML, 100ML BOTTLE ONE (08:34)
[2019-01-01] MEDS: FERROUS SULFATE 325 MG TABLET PO SCH (12:29)
[2019-01-01] MEDS: DOCUSATE 100 MG CAPSULE PO PRN (12:29)
[2019-01-01 14:57] VITALS: BP 118/78
[2019-01-01] MEDS: HEPARIN 25,000 UNITS/500ML PMX 500 ML IV PRN (15:07)
[2019-01-01] MEDS: ONDANSETRON 2MG/ML, 2ML IVPush PRN (17:09)
[2019-01-01 20:28] VITALS: BP 122/80
[2019-01-01] MEDS: morphine SULFATE 10 MG/ML, 1ML IVPush PRN (21:14)
[2019-01-02] MEDS: HEPARIN 5,000 UNITS/ML, 1ML IV PRN (00:09)
[2019-01-02] MEDS: OXYcodone IR 5MG TABLET PO PRN ×2 (00:36→13:10)
[2019-01-02] MEDS: morphine SULFATE 10 MG/ML, 1ML IVPush PRN ×5 (00:41→20:32)
[2019-01-02 03:59] VITALS: BP 122/81
[2019-01-02 06:57] LABS: MEAN CORPUSCULAR HEMOGLOBIN 22.4 pg (27.0-34.8); MEAN CORPUSCULAR HGB CONC 30.8 g/dL (32.4-35.8); MEAN CORPUSCULAR VOLUME 72.8 fL (80-100); MEAN PLATELET VOLUME 7.2 fL (7.4-10.4); PLATELET COUNT 288 x10^3/uL (130-400); RED BLOOD COUNT 4.18 x10^6/uL (3.82-5.3); RED CELL DISTRIBUTION WIDTH 29.9 % (9.6-15.2)
[2019-01-02 07:08] LABS: ANION GAP 5 mmol/L (5-15); CHLORIDE 105 mmol/L (98-107); CREATININE 0.97 mg/dL (0.55-1.02)
[2019-01-02 07:43] LABS: MD YES
[2019-01-02 07:45] LABS: ANISOCYTOSIS 1+; EOS#(MANUAL) 0.04 x10^3/uL (0.0-0.4); EOS% (MANUAL) 1 % (1-7); LYMPH#(MANUAL) 1.72 x10^3/uL (1-3.4); LYMPHS% (MANUAL) 41 % (22-44); MICROCYTOSIS 1+; MONOS#(MANUAL) 0.29 x10^3/uL (0.3-2.7); MONOS% (MANUAL) 7 % (2-9); OVALOCYTES 1+; SEG#(MANUAL) 2.14 x10^3/uL (1.8-6.8); SEGS% (MANUAL) 51 % (42-75)
[2019-01-02 07:46] LABS: <PLATELET ESTIMATE> ADEQUATE; <PLT MORPHOLOGY> NORMAL PLT MORPH; HYPOCHROMIA 2+; POLYCHROMASIA 1+
[2019-01-02 08:18] VITALS: BP 123/83
[2019-01-02 08:58] LABS: INTERNATIONAL NORMALIZED RATIO 0.96 (0.93-1.1); PROTHROMBIN TIME 10.1 Seconds (9.6-11.5)
[2019-01-02] MEDS ORDERED: MORPHINE SULFATE 4 MG/ML, 1ML ONE (09:19)
[2019-01-02] MEDS: FERROUS SULFATE 325 MG TABLET PO SCH (09:22)
[2019-01-02] MEDS: HEPARIN 25,000 UNITS/500ML PMX 500 ML IV PRN (10:17)
[2019-01-02 12:58] VITALS: BP 124/81
[2019-01-02] MEDS ORDERED: GOLYTELY 4,000ML ORAL.SOL PO SCH (16:00)
[2019-01-02 21:58] VITALS: BP 149/100
[2019-01-02] MEDS: ONDANSETRON 2MG/ML, 2ML IVPush PRN (22:22)
[2019-01-03 03:23] VITALS: BP 134/84
[2019-01-03] MEDS: HEPARIN 5,000 UNITS/ML, 1ML IV PRN (05:42)
[2019-01-03 07:10] VITALS: BP 129/92
[2019-01-03] MEDS: FERROUS SULFATE 325 MG TABLET PO SCH (09:22)
[2019-01-03 09:23] LABS: BASOPHILS % (AUTO) 0 % (0-1); EOSINOPHILS % (AUTO) 3 % (1-7); LYMPHOCYTES # (AUTO) 1.18 x10^3/uL (1-3.4); LYMPHOCYTES % (AUTO) 32 % (22-44); MD MORPH REVIEW ONLY; MEAN CORPUSCULAR HEMOGLOBIN 22.5 pg (27.0-34.8); MEAN CORPUSCULAR HGB CONC 30.7 g/dL (32.4-35.8); MEAN CORPUSCULAR VOLUME 73.4 fL (80-100); MEAN PLATELET VOLUME 8.1 fL (7.4-10.4); MONOCYTES # (AUTO) 0.48 x10^3/uL (0.2-0.8); MONOCYTES % (AUTO) 13 % (2-9); NEUTROPHILS # (AUTO) 1.94 x10^3/uL (1.8-6.8); NEUTROPHILS % (AUTO) 52 % (42-75); PLATELET COUNT 234 x10^3/uL (130-400); RED BLOOD COUNT 3.81 x10^6/uL (3.82-5.3); RED CELL DISTRIBUTION WIDTH 29.3 % (9.6-15.2)
[2019-01-03 09:24] LABS: ANISOCYTOSIS 1+; HYPOCHROMIA 2+; MICROCYTOSIS 1+; POLYCHROMASIA 1+
[2019-01-03 09:25] LABS: <PLATELET ESTIMATE> ADEQUATE; <PLT MORPHOLOGY> NORMAL PLT MORPH
[2019-01-03 11:52] LABS: HCG UR SG 1.008 (1.003-1.030)
[2019-01-03] MEDS ORDERED: HEPARIN 1,000 UNITS/ML, 10ML ONE (13:18)
[2019-01-03] MEDS ORDERED: INDIGO CARMINE 0.8%, 5ML ONE (13:18)
[2019-01-03] MEDS ORDERED: MIDAZOLAM 1 MG/ML, 2ML ONE (13:27)
[2019-01-03] MEDS ORDERED: FENTANYL PF 250 MCG/5ML ONE (13:29)
[2019-01-03] MEDS ORDERED: NEOSTIGMINE 1 MG/ML, 10ML ONE (13:31)
[2019-01-03] MEDS ORDERED: METOCLOPRAMIDE 5 MG/ML, 2ML ONE ×2 (13:31→23:19)
[2019-01-03] MEDS ORDERED: DEXAMETHASONE 4 MG/ML, 1ML ONE (13:31)
[2019-01-03] MEDS ORDERED: ONDANSETRON 2MG/ML, 2ML ONE (13:31)
[2019-01-03] MEDS ORDERED: ROCURONIUM 10 MG/ML,10ML ONE (13:31)
[2019-01-03] MEDS ORDERED: GLYCOPYRROLATE 0.2MG/1ML, 5ML ONE (13:31)
[2019-01-03] MEDS ORDERED: CEFAZOLIN 1,000 MG ONE (13:31)
[2019-01-03] MEDS ORDERED: KETOROLAC 30 MG/1 ML ONE (13:31)
[2019-01-03] MEDS ORDERED: PROPOFOL 10 MG/ML, 20ML ONE (13:31)
[2019-01-03] MEDS ORDERED: PROMETHAZINE 25 MG/ML, 1ML IV PRN (14:30)
[2019-01-03] MEDS ORDERED: hydrALAzine 20 MG/ML, 1ML IV PRN (14:30)
[2019-01-03] MEDS ORDERED: OXYcodone 5 MG/5 ML ORAL.SOL UDC PO PRN (14:30)
[2019-01-03] MEDS ORDERED: DIPHENHYDRAMINE 50 MG/ML, 1ML IVPush PRN (14:30)
[2019-01-03] MEDS ORDERED: LORazepam 2 MG/ML, 1ML IVPush PRN (14:30)
[2019-01-03] MEDS ORDERED: FENTANYL PF 100 MCG/2ML IV PRN (14:30)
[2019-01-03] MEDS ORDERED: MEPERIDINE/PF 25MG/0.5ML IVPush PRN (14:30)
[2019-01-03] MEDS ORDERED: ACETAMINOPHEN 325 MG TABLET PO PRN (14:30)
[2019-01-03] MEDS ORDERED: LABETALOL 5MG/ML, 20ML IV PRN (14:30)
[2019-01-03] MEDS ORDERED: MORPHINE SULFATE 4 MG/ML, 1ML IVPush PRN (14:30)
[2019-01-03] MEDS ORDERED: POTASSIUM CHLORIDE 20 MEQ in D5%-0.45% NACL 1,000 ML IV SCH (15:22)
[2019-01-03] MEDS ORDERED: HYDROmorphone 2 MG/ML, 1ML ONE (15:55)
[2019-01-03] MEDS ORDERED: OXYcodone 5 MG/5 ML ORAL.SOL UDC ONE (15:56)
[2019-01-03] MEDS: POTASSIUM CHLORIDE 20 MEQ in D5%-0.45% NACL 1,000 ML IV SCH (16:00)
[2019-01-03] MEDS: HYDROmorphone 2 MG/ML, 1ML IVPush PRN ×3 (16:05→16:40)
[2019-01-03] MEDS: ONDANSETRON 2MG/ML, 2ML IVPush PRN (19:29)
[2019-01-03] MEDS: KETOROLAC 30 MG/1 ML IM PRN (20:22)
[2019-01-03 20:39] VITALS: BP 128/93
[2019-01-03] MEDS: METOCLOPRAMIDE 5 MG/ML, 2ML IVPush PRN (23:22)
[2019-01-03 23:27] VITALS: BP 114/72
[2019-01-04] MEDS: POTASSIUM CHLORIDE 20 MEQ in D5%-0.45% NACL 1,000 ML IV SCH ×4 (00:25→22:37)
[2019-01-04 04:26] VITALS: BP 107/80
[2019-01-04] MEDS: KETOROLAC 30 MG/1 ML IM PRN (04:54)
[2019-01-04 05:34] LABS: ANION GAP 5 mmol/L (5-15); CALCIUM 8.7 mg/dL (8.5-10.1); CHLORIDE 104 mmol/L (98-107); CREATININE 0.96 mg/dL (0.55-1.02)
[2019-01-04 05:35] LABS: MEAN CORPUSCULAR HEMOGLOBIN 23.3 pg (27.0-34.8); MEAN CORPUSCULAR HGB CONC 31.5 g/dL (32.4-35.8); MEAN CORPUSCULAR VOLUME 73.8 fL (80-100); MEAN PLATELET VOLUME 7.6 fL (7.4-10.4); PLATELET COUNT 210 x10^3/uL (130-400); RED BLOOD COUNT 3.69 x10^6/uL (3.82-5.3); RED CELL DISTRIBUTION WIDTH 29.9 % (9.6-15.2)
[2019-01-04 05:58] LABS: MD YES
[2019-01-04 06:00] LABS: ANISOCYTOSIS 1+; BAND#(MANUAL) 0.06 x10^3/uL; BANDS%(MANUAL) 1 % (0-7); HYPOCHROMIA 2+; LYMPH#(MANUAL) 1.16 x10^3/uL (1-3.4); LYMPHS% (MANUAL) 21 % (22-44); MICROCYTOSIS 1+; MONOS#(MANUAL) 0.55 x10^3/uL (0.3-2.7); MONOS% (MANUAL) 10 % (2-9); POLYCHROMASIA 1+; SEG#(MANUAL) 3.74 x10^3/uL (1.8-6.8); SEGS% (MANUAL) 68 % (42-75)
[2019-01-04 06:01] LABS: <PLATELET ESTIMATE> ADEQUATE; <PLT MORPHOLOGY> NORMAL PLT MORPH; OVALOCYTES 1+
[2019-01-04 07:53] VITALS: BP 116/82
[2019-01-04] MEDS: FERROUS SULFATE 325 MG TABLET PO SCH ×2 (08:51→09:00)
[2019-01-04] MEDS: ONDANSETRON 2MG/ML, 2ML IVPush PRN (08:52)
[2019-01-04] MEDS: HEPARIN 25,000 UNITS/500ML PMX 500 ML IV PRN (09:21)
[2019-01-04 12:34] VITALS: BP 109/71
[2019-01-04] MEDS: METOCLOPRAMIDE 5 MG/ML, 2ML IVPush PRN (13:07)
[2019-01-04] MEDS: OXYcodone/APAP 10/325MG TABLET PO PRN ×3 (13:07→21:35)
[2019-01-04] MEDS: HEPARIN 5,000 UNITS/ML, 1ML IV PRN (16:32)
[2019-01-04] MEDS ORDERED: morphine SULFATE 10 MG/ML, 1ML IVPush PRN (17:30)
[2019-01-04] MEDS ORDERED: LORazepam 2 MG/ML, 1ML ONE (17:59)
[2019-01-04] MEDS ORDERED: LORazepam 2 MG/ML, 1ML IVPush ONE (18:00)
[2019-01-04 20:51] VITALS: BP 105/70
[2019-01-05] MEDS: OXYcodone/APAP 10/325MG TABLET PO PRN ×4 (03:59→21:49)
[2019-01-05 04:06] LABS: ANION GAP 3 mmol/L (5-15); CALCIUM 8.5 mg/dL (8.5-10.1); CHLORIDE 105 mmol/L (98-107); CREATININE 0.99 mg/dL (0.55-1.02)
[2019-01-05] MEDS: HEPARIN 5,000 UNITS/ML, 1ML IV PRN (04:21)
[2019-01-05 04:22] LABS: MEAN CORPUSCULAR HEMOGLOBIN 22.8 pg (27.0-34.8); MEAN CORPUSCULAR HGB CONC 30.9 g/dL (32.4-35.8); MEAN CORPUSCULAR VOLUME 73.8 fL (80-100); MEAN PLATELET VOLUME 7.8 fL (7.4-10.4); PLATELET COUNT 237 x10^3/uL (130-400); RED CELL DISTRIBUTION WIDTH 29.3 % (9.6-15.2)
[2019-01-05 04:28] VITALS: BP 134/91
[2019-01-05] MEDS: HEPARIN 25,000 UNITS/500ML PMX 500 ML IV PRN ×2 (04:28→19:48)
[2019-01-05 04:49] LABS: BASOPHILS # (AUTO) 0.01 x10^3/uL (0-0.1); BASOPHILS % (AUTO) 0 % (0-1); EOSINOPHILS # (AUTO) 0.09 x10^3/uL (0-0.4); EOSINOPHILS % (AUTO) 2 % (1-7); LYMPHOCYTES # (AUTO) 1.03 x10^3/uL (1-3.4); LYMPHOCYTES % (AUTO) 18 % (22-44); MD SCAN; MONOCYTES # (AUTO) 0.63 x10^3/uL (0.2-0.8); MONOCYTES % (AUTO) 11 % (2-9); NEUTROPHILS # (AUTO) 4.04 x10^3/uL (1.8-6.8); NEUTROPHILS % (AUTO) 70 % (42-75)
[2019-01-05] MEDS: POTASSIUM CHLORIDE 20 MEQ in D5%-0.45% NACL 1,000 ML IV SCH ×2 (05:13→16:30)
[2019-01-05] MEDS: FERROUS SULFATE 325 MG TABLET PO SCH (08:01)
[2019-01-05] MEDS: KETOROLAC 30 MG/1 ML IM PRN ×2 (08:06→14:37)
[2019-01-05 08:09] VITALS: BP 132/86
[2019-01-05 13:36] VITALS: BP 120/81
[2019-01-05] MEDS ORDERED: KETOROLAC 30 MG/1 ML IV SCH (16:00)
[2019-01-05] MEDS: DOCUSATE 100 MG CAPSULE PO PRN (19:51)
[2019-01-05] MEDS: KETOROLAC 30 MG/1 ML IV PRN (19:52)
[2019-01-05 21:41] VITALS: BP 126/93
[2019-01-06] MEDS: POTASSIUM CHLORIDE 20 MEQ in D5%-0.45% NACL 1,000 ML IV SCH (00:35)
[2019-01-06 05:39] LABS: MEAN CORPUSCULAR HEMOGLOBIN 22.9 pg (27.0-34.8); MEAN CORPUSCULAR HGB CONC 31.1 g/dL (32.4-35.8); MEAN CORPUSCULAR VOLUME 73.7 fL (80-100); MEAN PLATELET VOLUME 7.9 fL (7.4-10.4); PLATELET COUNT 221 x10^3/uL (130-400); RED BLOOD COUNT 3.13 x10^6/uL (3.82-5.3); RED CELL DISTRIBUTION WIDTH 29.4 % (9.6-15.2)
[2019-01-06 05:46] LABS: ANION GAP 6 mmol/L (5-15); CALCIUM 8.5 mg/dL (8.5-10.1); CHLORIDE 108 mmol/L (98-107); CREATININE 0.84 mg/dL (0.55-1.02)
[2019-01-06 05:51] VITALS: BP 121/83
[2019-01-06] MEDS: ONDANSETRON 2MG/ML, 2ML IVPush PRN (06:04)
[2019-01-06] MEDS: KETOROLAC 30 MG/1 ML IV PRN (06:04)
[2019-01-06 06:08] LABS: MD MORPH REVIEW ONLY
[2019-01-06 06:09] LABS: BASOPHILS # (AUTO) 0.01 x10^3/uL (0-0.1); BASOPHILS % (AUTO) 0 % (0-1); EOSINOPHILS # (AUTO) 0.12 x10^3/uL (0-0.4); EOSINOPHILS % (AUTO) 2 % (1-7); LYMPHOCYTES % (AUTO) 14 % (22-44); MONOCYTES # (AUTO) 0.59 x10^3/uL (0.2-0.8); MONOCYTES % (AUTO) 11 % (2-9); NEUTROPHILS % (AUTO) 73 % (42-75)
[2019-01-06 06:10] LABS: ANISOCYTOSIS 2+; HYPOCHROMIA 1+; MICROCYTOSIS 1+; OVALOCYTES 1+
[2019-01-06 06:14] LABS: <PLATELET ESTIMATE> ADEQUATE; <PLT MORPHOLOGY> NORMAL PLT MORPH; POLYCHROMASIA 1+
[2019-01-06] MEDS: OXYcodone/APAP 10/325MG TABLET PO PRN ×2 (06:25→11:08)
[2019-01-06 07:20] VITALS: BP 122/79
[2019-01-06] MEDS: FERROUS SULFATE 325 MG TABLET PO SCH (08:52)
[2019-01-06] MEDS ORDERED: ONDANSETRON ODT 4 MG PO PRN (13:00)
[2019-01-06] MEDS ORDERED: RIVA1TAB PO (13:12)
[2019-01-06] MEDS ORDERED: FERR-46 PO (13:12)
[2019-01-06] MEDS ORDERED: ONDA4TAB13 PO (13:12)
[2019-01-06] MEDS ORDERED: RIVAROXABAN 15 MG TABLET PO SCH ×2 (14:00→17:00)
[2019-01-06 14:04] VITALS: BP 126/90
[2019-01-08] MEDS ORDERED: KETOROLAC 30 MG/1 ML IVPush SCH (22:30)
== END 2019-01-06 16:09 | disposition home or self-care (01) | DRG 742 ==
LOC: ED 11:15 → EDIP 12:22 → 4EST 15:31 → 3NE 01-02 18:06 → 4NOR 01-03 16:57 → DCLOUNGE 01-06 15:42
PROVIDERS: ADMIT Internal Medicine; ATTEND Internal Medicine
PROC: 0UT70ZZ Resection of Bilateral Fallopian Tubes, Open Approach (ICD-10-PCS; 2019-01-03)
PROC: 0UT90ZZ Resection of Uterus, Open Approach (ICD-10-PCS; principal; 2019-01-03 13:00)
DX: D25.9 Leiomyoma of uterus, unspecified (principal); I82.402 Acute embolism and thrombosis of unspecified deep veins of left lower extremity; D50.9 Iron deficiency anemia, unspecified; F41.1 Generalized anxiety disorder; I10 Essential (primary) hypertension; G89.29 Other chronic pain; I27.20 Pulmonary hypertension, unspecified; M85.80 Other specified disorders of bone density and structure, unspecified site; Z79.01 Long term (current) use of anticoagulants; Z80.3 Family history of malignant neoplasm of breast; Z80.49 Family history of malignant neoplasm of other genital organs; Z82.49 Family history of ischemic heart disease and other diseases of the circulatory system; Z95.828 Presence of other vascular implants and grafts; Z86.711 Personal history of pulmonary embolism
CPT/HCPCS: 36415; 74018; 99291; J3490; 71275; 74177; 80048; 80053; 81025; 82728; 83540; 83550; 83615; 83735; 83880; 85025; 85045; 85520; 85610; 85730; 86850; 86900; 88307; 93005; 93308; 93321; 93325; 96372; 96374; 96375; G0378; J0690; J1100; J1170; J1644; J1885; J2250; J2270; J2405; J2550; J2704; J2710; J3010; J3480; Q0162; Q9967; C1765; J2060; J2765

== ENCOUNTER 2019-01-08 10:07 | Inpatient (IN) | payer OTHER ==
[~2019-01-08] VITALS: Ht 162.6 cm; Wt 84.9 kg
[~2019-01-08 10:07] MED LIST changes: +HYDR-3245 PO; +ONDA4TAB13 PO
[2019-01-08] MEDS ORDERED: ONDANSETRON 2MG/ML, 2ML ONE (10:39)
[2019-01-08] MEDS ORDERED: SODIUM CHLORIDE 0.9% 1,000 ML IV ONE ×2 (10:40→13:47)
[2019-01-08] MEDS ORDERED: MORPHINE SULFATE 4 MG/ML, 1ML ONE ×6 (10:40→19:12)
[2019-01-08] MEDS: MORPHINE SULFATE 4 MG/ML, 1ML IVPush PRN ×6 (10:51→19:17)
[2019-01-08] MEDS ORDERED: SODIUM CHLORIDE FLUSH 10ML SYR IVF ONE (11:00)
[2019-01-08] MEDS ORDERED: SODIUM CHLORIDE 0.9% 1,000ML IVBOLUS ONE ×3 (11:00→17:30)
[2019-01-08] MEDS ORDERED: ONDANSETRON 2MG/ML, 2ML IVPush ONE (11:00)
[2019-01-08] MEDS ORDERED: PLEASE ENTER HEIGHT AND WEIGHT MC SCH (11:00)
[2019-01-08 11:17] LABS: MEAN CORPUSCULAR HEMOGLOBIN 22.4 pg (27.0-34.8); MEAN CORPUSCULAR HGB CONC 30.8 g/dL (32.4-35.8); MEAN CORPUSCULAR VOLUME 72.8 fL (80-100); MEAN PLATELET VOLUME 7.3 fL (7.4-10.4); PLATELET COUNT 379 x10^3/uL (130-400); RED BLOOD COUNT 3.94 x10^6/uL (3.82-5.3); RED CELL DISTRIBUTION WIDTH 28.9 % (9.6-15.2)
[2019-01-08 11:19] LABS: CULTURE INDICATED? YES; MICROSCOPIC INDICATED
[2019-01-08 11:22] LABS: ALANINE AMINOTRANSFERASE 11 U/L (12-78); ALBUMIN 2.8 g/dL (3.4-5.0); ANION GAP 6 mmol/L (5-15); CHLORIDE 104 mmol/L (98-107); CREATININE 0.97 mg/dL (0.55-1.02)
[2019-01-08 11:24] LABS: ALKALINE PHOSPHATASE 95 U/L (45-117); BILIRUBIN,TOTAL 0.5 mg/dL (0.2-1.0); TOTAL PROTEIN 6.6 g/dL (6.4-8.2)
[2019-01-08] MEDS ORDERED: ACETAMINOPHEN 325 MG TABLET PO ONE (11:30)
[2019-01-08 11:34] LABS: MD YES
[2019-01-08 11:36] LABS: BANDS%(MANUAL) 10 % (0-7); EOS#(MANUAL) 0.09 x10^3/uL (0.0-0.4); EOS% (MANUAL) 1 % (1-7); LYMPH#(MANUAL) 1.17 x10^3/uL (1-3.4); LYMPHS% (MANUAL) 13 % (22-44); MONOS#(MANUAL) 0.63 x10^3/uL (0.3-2.7); MONOS% (MANUAL) 7 % (2-9); SEG#(MANUAL) 6.21 x10^3/uL (1.8-6.8); SEGS% (MANUAL) 69 % (42-75)
[2019-01-08 11:38] LABS: ANISOCYTOSIS 2+; MICROCYTOSIS 1+
[2019-01-08 11:39] LABS: HYPOCHROMIA 1+; POLYCHROMASIA 1+; SPHEROCYTES 1+
[2019-01-08] MEDS ORDERED: ACETAMINOPHEN 325 MG TABLET ONE (11:39)
[2019-01-08 11:40] LABS: <PLATELET ESTIMATE> ADEQUATE; <PLT MORPHOLOGY> NORMAL PLT MORPH
[2019-01-08] MEDS ORDERED: RIVA15TA PO (12:24)
--- NOTE | 2019-01-08 12:25 | NUR ---
VS UPDATED AND TEMP CONTINUES TO CLIMB. ALL BLANKETS REMOVED. PATIENT ON BEDPAN.
[2019-01-08] MEDS ORDERED: MIDAZOLAM 1 MG/ML, 5ML IVPush ONE (12:30)
[2019-01-08] MEDS ORDERED: OMNIPAQUE 350 MG/ML, 100ML BOTTLE ONE (12:59)
[2019-01-08] MEDS ORDERED: PIPERACILLIN/TAZO/PMX 3.375GM 50 ML IVPB ONE (13:30)
[2019-01-08] MEDS ORDERED: PIPERACILLIN/TAZO/PMX 3.375GM 50 ML ONE ×2 (13:58→22:16)
[2019-01-08] MEDS ORDERED: ONDANSETRON 2MG/ML, 2ML IVPush PRN (14:00)
[2019-01-08] MEDS ORDERED: SODIUM CHLORIDE FLUSH 10ML SYR IVF PRN (14:00)
--- NOTE | 2019-01-08 14:17 | NUR ---
assumed care of pt while primary rn at lunch. pt moaning and in pain. morphine given 4mg iv. admitting hospitalist at bedside. antibiotics hung per md order.
--- NOTE | 2019-01-08 14:24 | NUR ---
pt states pain down to 3/10
--- NOTE | 2019-01-08 14:26 | NUR ---
SBAR TELEPHONE HAND-OFF REPORT GIVEN TO EVANGELINA FLORES.
[2019-01-08] MEDS ORDERED: MIDAZOLAM 1 MG/ML, 5ML ONE (14:51)
[2019-01-08] MEDS ORDERED: FLUMAZENIL 0.1 MG/1 ML, 5ML ONE (14:51)
[2019-01-08] MEDS ORDERED: FENTANYL PF 100 MCG/2ML ONE ×2 (14:51→21:15)
[2019-01-08] MEDS ORDERED: NALOXONE 1 MG/ML, 2ML ONE (14:51)
[2019-01-08] MEDS ORDERED: ACETAMINOPHEN 650 MG SUPP PR PRN (15:00)
[2019-01-08] MEDS ORDERED: SODIUM CHLORIDE 0.9%, 500ML IVBOLUS PRN ×2 (15:00)
[2019-01-08] MEDS ORDERED: PHARMACY MAY ADJ FOR RENAL FX MC PRN (15:00)
[2019-01-08] MEDS: PIPERACILLIN/TAZO/PMX 3.375GM 50 ML IV SCH ×2 (15:00→22:44)
[2019-01-08] MEDS ORDERED: LIDOCAINE-MPF 1%, 5ML ONE (15:06)
--- NOTE | 2019-01-08 15:20 | NUR ---
PT TO IR AT THIS TIME FOR ABD ABSCESS DRAINAGE.
--- NOTE | 2019-01-08 15:24 | NUR ---
MELANIA, SHAKIRA POLK, CELL= .
--- NOTE | 2019-01-08 16:28 | NUR ---
RECEIVED REPORT FROM EVANGELINA SHIPLEY. PT PERSONAL BELONGINGS MOVED TO ROOM ER 2. PT CURRENTLY IN IR.
--- NOTE | 2019-01-08 16:29 | NUR ---
SBAR HAND-OFF REPORT GIVEN TO EVANGELINA LOZADA.
--- NOTE | 2019-01-08 16:40 | NUR ---
RECEIVED REPORT FROM IR. PT HAD STOOL ODOR AIR FROM ABSCESS AND ONLY 75ML DRAINAGE. PT HAD ABSCESS DRAINAGE PLACED TO R GLUTEAL AREA.
[2019-01-08] MEDS: LACTATED RINGERS 1,000 ML IV SCH ×2 (16:54→22:45)
[2019-01-08] MEDS ORDERED: ACETAMINOPHEN 650 MG/20.3 ML UDC ONE ×2 (16:56→16:59)
[2019-01-08] MEDS: ACETAMINOPHEN 650 MG/20.3 ML UDC PO PRN (16:57)
--- NOTE | 2019-01-08 17:11 | NUR ---
ERP DR. ARIAS AT BEDSIDE TO EVALUATE PT. PT MEDICATED PER MAR FOR TEMP. NS BOLUS INITIATED PER ERP. AWARE OF ABSCESS DRAINAGE IN PLACE AND ODOR/AIR COMING FROM IT
--- NOTE | 2019-01-08 17:24 | NUR ---
DR. ANGEL AT BEDSIDE.
[2019-01-08] MEDS ORDERED: ACETAMINOPHEN 325 MG/10.15 ML UDC PO ONE ×2 (17:30)
[2019-01-08] MEDS ORDERED: METRONIDAZOLE PMX 500MG/100ML 100 ML ONE (17:53)
--- NOTE | 2019-01-08 18:10 | NUR ---
PT TEMP NOTED TO BE 103.0 AFTER ADMIN OF 1 GM TYLENOL. SPOKE W/ NOC COVERAGE FOR ICU WHO STATES SHE WILL BE DOWN TO ASSESS PT NOW AND WILL ASSESS NEEDS FOR TEMP AT THIS TIME.
--- NOTE | 2019-01-08 18:14 | NUR ---
PT MOVED FROM [facility] TO HOSPITAL BED. PT AMAURI CARE PERFORMED AND RIGOBERTO ADDED.
[2019-01-08] MEDS: METRONIDAZOLE PMX 500MG/100ML 100 ML IV SCH (18:18)
--- NOTE | 2019-01-08 18:20 | NUR ---
DR. MILLER AT BEDSIDE. NEW ORDER FOR MOTRIN 800 MG PO W/ 20 MG PO PEPCID
[2019-01-08] MEDS ORDERED: IBUPROFEN 800 MG TABLET ONE (18:23)
[2019-01-08] MEDS ORDERED: FAMOTIDINE 20 MG TABLET ONE (18:23)
[2019-01-08] MEDS ORDERED: IBUPROFEN 800 MG TABLET PO ONE (18:30)
[2019-01-08] MEDS ORDERED: FAMOTIDINE 20 MG TABLET PO ONE (18:30)
--- NOTE | 2019-01-08 18:55 | NUR ---
RECEIVED REPORT FROM EVANGELINA LOZADA. AWAITING FOR DR. DOZIER TO SEE PATIENT. VSS. RE-CHECKED TEMP 100.4, PATIENT C/O PAIN. MORPHINE GIVEN ON SLOW IV PUSH.
--- NOTE | 2019-01-08 19:07 | NUR ---
REPORT GIVEN TO CELSA LEVY RN.
[2019-01-08 19:30] LABS: INTERNATIONAL NORMALIZED RATIO 1.16 (0.93-1.1); PROTHROMBIN TIME 12.1 Seconds (9.6-11.5)
--- NOTE | 2019-01-08 21:28 | NUR ---
BP improved. re-medicated for pain.
[2019-01-08] MEDS ORDERED: FENTANYL PF 100 MCG/2ML IVPush ONE (21:30)
--- NOTE | 2019-01-08 21:35 | NUR ---
Dr. Grigsby here to see patient.
--- NOTE | 2019-01-08 21:45 | NUR ---
Dr. Grigsby at bedside for patient evaluation. plan on care for observation. no surgery at the moment. thinks that it is not a bowel perforation. no stool coming out from the drainage. purely blood.
[2019-01-08] MEDS ORDERED: OXYcodone/APAP 5/325MG TABLET ONE (21:56)
[2019-01-08] MEDS ORDERED: MAGNESIUM SULFATE PMX 2GM/50ML 50 ML IV ONE (22:00)
[2019-01-08] MEDS ORDERED: MAGNESIUM SULFATE PMX 2GM/50ML 50 ML ONE (22:16)
--- NOTE | 2019-01-08 23:59 | NUR ---
patient sleeping, respiration unlabored. will continue to monitor.
[2019-01-09] MEDS ORDERED: METRONIDAZOLE PMX 500MG/100ML 100 ML ONE (01:29)
--- NOTE | 2019-01-09 01:35 | NUR ---
PT REPORT FROM CAM HUTCHINSON. IV INFUSING APPROPRIATELY. SLEEPING OMFORTABLY. RR EVEN AND UNLABORED. NADN. STEPHENS.
[2019-01-09] MEDS: METRONIDAZOLE PMX 500MG/100ML 100 ML IV SCH ×3 (02:12→17:58)
--- NOTE | 2019-01-09 02:35 | NUR ---
ZOSYN NOT DUE UNTIL 0444 PER Q6H SCHEDULE BY EMAR.
--- NOTE | 2019-01-09 04:17 | NUR ---
THIS RN TALKED TO HOSPITALIST ABOUT PT PRESENTATION. MD ORDERED TO DOWNGRADE PT TO MEDTELE.
[2019-01-09] MEDS: LACTATED RINGERS 1,000 ML IV SCH (04:20)
[2019-01-09] MEDS ORDERED: PIPERACILLIN/TAZO/PMX 3.375GM 50 ML ONE (04:23)
--- NOTE | 2019-01-09 04:34 | NUR ---
THIS RN ATTEMPTED TO GIVE ZOSYN. NO ZOSYN IN OMNICELL. RX CALLED. ZOSYN BEING SENT DOWN.
[2019-01-09] MEDS ORDERED: MORPHINE SULFATE 4 MG/ML, 1ML ONE (04:41)
[2019-01-09] MEDS: MORPHINE SULFATE 4 MG/ML, 1ML IVPush PRN (04:46)
[2019-01-09] MEDS: PIPERACILLIN/TAZO/PMX 3.375GM 50 ML IV SCH ×4 (04:46→21:11)
--- NOTE | 2019-01-09 04:56 | NUR ---
PT STATES RECENT INCREASE IN PAIN AND GIVEN MORPHINE PER DEC. ABX STARTED.
[2019-01-09 05:11] LABS: MEAN CORPUSCULAR HEMOGLOBIN 22.9 pg (27.0-34.8); MEAN CORPUSCULAR HGB CONC 31.5 g/dL (32.4-35.8); MEAN CORPUSCULAR VOLUME 72.7 fL (80-100); MEAN PLATELET VOLUME 7.4 fL (7.4-10.4); PLATELET COUNT 284 x10^3/uL (130-400); RED BLOOD COUNT 3.36 x10^6/uL (3.82-5.3); RED CELL DISTRIBUTION WIDTH 28.2 % (9.6-15.2)
[2019-01-09 05:16] LABS: ALANINE AMINOTRANSFERASE 12 U/L (12-78); ALBUMIN 1.9 g/dL (3.4-5.0); ANION GAP 8 mmol/L (5-15); CALCIUM 7.5 mg/dL (8.5-10.1); CHLORIDE 110 mmol/L (98-107); CREATININE 1.06 mg/dL (0.55-1.02)
[2019-01-09 05:18] LABS: ALKALINE PHOSPHATASE 61 U/L (45-117); BILIRUBIN,TOTAL 0.6 mg/dL (0.2-1.0); TOTAL PROTEIN 4.9 g/dL (6.4-8.2)
[2019-01-09] MEDS ORDERED: HYDROmorphone 2 MG/ML, 1ML ONE ×4 (05:41→15:26)
[2019-01-09] MEDS: HYDROmorphone 1 MG/ML, 1ML AMP IV PRN ×4 (06:00→15:29)
[2019-01-09 06:02] LABS: MD YES
[2019-01-09 06:04] VITALS: BP 103/70
[2019-01-09 06:04] LABS: BAND#(MANUAL) 2.89 x10^3/uL; BANDS%(MANUAL) 38 % (0-7); LYMPH#(MANUAL) 0.53 x10^3/uL (1-3.4); LYMPHS% (MANUAL) 7 % (22-44); METAMYELOCYTES# (MANUAL) 0.23 x10^3/uL (0-0); METAMYELOCYTES% (MANUAL) 3 % (0-1); MONOS#(MANUAL) 0.38 x10^3/uL (0.3-2.7); MONOS% (MANUAL) 5 % (2-9); SEG#(MANUAL) 3.57 x10^3/uL (1.8-6.8); SEGS% (MANUAL) 47 % (42-75)
[2019-01-09 06:05] LABS: ANISOCYTOSIS 2+; HYPOCHROMIA 1+; MICROCYTOSIS 1+; OVALOCYTES 1+; POLYCHROMASIA 1+
[2019-01-09 06:06] LABS: PMNS WITH VACUOLES 1+
[2019-01-09 06:07] LABS: <PLATELET ESTIMATE> ADEQUATE; <PLT MORPHOLOGY> NORMAL PLT MORPH
[2019-01-09] MEDS: FAMOTIDINE 20 MG/2 ML IVPush SCH ×2 (08:45→21:11)
[2019-01-09] MEDS: D5%-LR+KCL 20MEQ 1,000 ML IV SCH ×2 (09:17→22:30)
[2019-01-09] MEDS: PROCHLORPERAZINE 5 MG/ML, 2ML IVPush PRN ×2 (12:16→21:11)
[2019-01-09 13:12] LABS: MD YES; MEAN CORPUSCULAR HEMOGLOBIN 22.8 pg (27.0-34.8); MEAN CORPUSCULAR HGB CONC 30.9 g/dL (32.4-35.8); MEAN CORPUSCULAR VOLUME 73.9 fL (80-100); MEAN PLATELET VOLUME 7.7 fL (7.4-10.4); PLATELET COUNT 301 x10^3/uL (130-400); RED BLOOD COUNT 3.66 x10^6/uL (3.82-5.3); RED CELL DISTRIBUTION WIDTH 29.3 % (9.6-15.2)
[2019-01-09 13:14] LABS: BAND#(MANUAL) 3.44 x10^3/uL; BANDS%(MANUAL) 37 % (0-7); SEG#(MANUAL) 4.74 x10^3/uL (1.8-6.8); SEGS% (MANUAL) 51 % (42-75)
[2019-01-09 13:15] LABS: ANISOCYTOSIS 2+; HYPOCHROMIA 2+; LYMPH#(MANUAL) 0.56 x10^3/uL (1-3.4); LYMPHS% (MANUAL) 6 % (22-44); MICROCYTOSIS 1+; MONOS#(MANUAL) 0.56 x10^3/uL (0.3-2.7); MONOS% (MANUAL) 6 % (2-9); OVALOCYTES 1+; POLYCHROMASIA 1+
[2019-01-09 13:16] LABS: ECHINOCYTES 1+; SCHISTOCYTES 1+
[2019-01-09 13:17] LABS: TARGET CELLS 1+
[2019-01-09 13:18] LABS: <PLATELET ESTIMATE> ADEQUATE; <PLT MORPHOLOGY> NORMAL PLT MORPH
[2019-01-09] MEDS ORDERED: OMNIPAQUE 350 MG/ML, 100ML BOTTLE ONE (13:24)
[2019-01-09 16:00] VITALS: BP 111/72
[2019-01-09] MEDS: ONDANSETRON 2MG/ML, 2ML IVPB PRN ×2 (16:54→23:13)
[2019-01-09] MEDS ORDERED: HYDROmorphone PCA 30 MG/30 ML IV PRN (17:00)
[2019-01-09 18:56] LABS: MD YES; MEAN CORPUSCULAR HEMOGLOBIN 22.9 pg (27.0-34.8); MEAN CORPUSCULAR HGB CONC 31.2 g/dL (32.4-35.8); MEAN CORPUSCULAR VOLUME 73.5 fL (80-100); MEAN PLATELET VOLUME 8.1 fL (7.4-10.4); PLATELET COUNT 309 x10^3/uL (130-400); RED BLOOD COUNT 3.84 x10^6/uL (3.82-5.3); RED CELL DISTRIBUTION WIDTH 29.3 % (9.6-15.2)
[2019-01-09 19:10] LABS: BAND#(MANUAL) 3.81 x10^3/uL; BANDS%(MANUAL) 31 % (0-7); LYMPH#(MANUAL) 0.37 x10^3/uL (1-3.4); LYMPHS% (MANUAL) 3 % (22-44); MONOS#(MANUAL) 0.49 x10^3/uL (0.3-2.7); MONOS% (MANUAL) 4 % (2-9); SEG#(MANUAL) 7.63 x10^3/uL (1.8-6.8); SEGS% (MANUAL) 62 % (42-75)
[2019-01-09 19:11] LABS: ANISOCYTOSIS 2+; ECHINOCYTES 1+; HYPOCHROMIA 1+; MICROCYTOSIS 1+; OVALOCYTES 1+; POLYCHROMASIA 1+; SCHISTOCYTES 1+; TARGET CELLS 1+
[2019-01-09 19:12] LABS: <PLATELET ESTIMATE> ADEQUATE; <PLT MORPHOLOGY> NORMAL PLT MORPH; PMNS WITH VACUOLES 1+; TOXIC GRAN 1+
[2019-01-09 19:41] VITALS: BP 112/76
[2019-01-09] MEDS: ACETAMINOPHEN 650 MG/20.3 ML UDC PO PRN (23:13)
[2019-01-10 00:30] LABS: BAND#(MANUAL) 2.32 x10^3/uL; BANDS%(MANUAL) 20 % (0-7); LYMPHS% (MANUAL) 6 % (22-44); MD YES; MEAN CORPUSCULAR HEMOGLOBIN 23.1 pg (27.0-34.8); MEAN CORPUSCULAR HGB CONC 31.5 g/dL (32.4-35.8); MEAN CORPUSCULAR VOLUME 73.3 fL (80-100); MEAN PLATELET VOLUME 7.9 fL (7.4-10.4); MONOS#(MANUAL) 0.35 x10^3/uL (0.3-2.7); MONOS% (MANUAL) 3 % (2-9); PLATELET COUNT 301 x10^3/uL (130-400); RED BLOOD COUNT 3.26 x10^6/uL (3.82-5.3); RED CELL DISTRIBUTION WIDTH 29.3 % (9.6-15.2); SEG#(MANUAL) 8.24 x10^3/uL (1.8-6.8); SEGS% (MANUAL) 71 % (42-75)
[2019-01-10 00:31] LABS: <PLATELET ESTIMATE> ADEQUATE; <PLT MORPHOLOGY> NORMAL PLT MORPH; ANISOCYTOSIS 2+; ECHINOCYTES 1+; HYPOCHROMIA 1+; MICROCYTOSIS 1+; OVALOCYTES 1+; PMNS WITH VACUOLES 1+; POLYCHROMASIA 1+; SCHISTOCYTES 1+; TARGET CELLS 1+; TOXIC GRAN 1+
[2019-01-10 01:20] VITALS: BP 93/58
[2019-01-10] MEDS: PROCHLORPERAZINE 5 MG/ML, 2ML IVPush PRN ×2 (02:28→21:49)
[2019-01-10] MEDS: METRONIDAZOLE PMX 500MG/100ML 100 ML IV SCH ×3 (02:29→23:33)
[2019-01-10] MEDS: PIPERACILLIN/TAZO/PMX 3.375GM 50 ML IV SCH ×3 (03:39→21:04)
[2019-01-10 07:52] LABS: ALANINE AMINOTRANSFERASE 16 U/L (12-78); ALBUMIN 1.9 g/dL (3.4-5.0); ANION GAP 6 mmol/L (5-15); CHLORIDE 110 mmol/L (98-107); CREATININE 1.72 mg/dL (0.55-1.02)
[2019-01-10 07:58] LABS: ALKALINE PHOSPHATASE 67 U/L (45-117); BILIRUBIN,TOTAL 0.5 mg/dL (0.2-1.0); TOTAL PROTEIN 5.3 g/dL (6.4-8.2)
[2019-01-10] MEDS ORDERED: HYDROmorphone PCA 30 MG/30 ML IV PRN ×2 (08:00)
[2019-01-10 08:12] VITALS: BP 92/66
[2019-01-10] MEDS: FAMOTIDINE 20 MG/2 ML IVPush SCH ×2 (09:00→21:04)
[2019-01-10] MEDS: D5%-LR+KCL 20MEQ 1,000 ML IV SCH ×2 (10:00→18:12)
[2019-01-10 11:03] LABS: OCCULT BLOOD NEGATIVE (NEGATIVE)
[2019-01-10] MEDS ORDERED: GADOBUTROL 7.5 MMOL/7.5 ML PFS ONE (11:08)
[2019-01-10 12:07] LABS: MEAN CORPUSCULAR HEMOGLOBIN 22.8 pg (27.0-34.8); MEAN CORPUSCULAR HGB CONC 31.4 g/dL (32.4-35.8); MEAN CORPUSCULAR VOLUME 72.7 fL (80-100); MEAN PLATELET VOLUME 8.6 fL (7.4-10.4); PLATELET COUNT 306 x10^3/uL (130-400); RED BLOOD COUNT 3.34 x10^6/uL (3.82-5.3)
[2019-01-10 12:43] LABS: BAND#(MANUAL) 0.93 x10^3/uL; BANDS%(MANUAL) 8 % (0-7); LYMPH#(MANUAL) 0.23 x10^3/uL (1-3.4); LYMPHS% (MANUAL) 2 % (22-44); MD YES; MONOS#(MANUAL) 0.23 x10^3/uL (0.3-2.7); MONOS% (MANUAL) 2 % (2-9); SEG#(MANUAL) 10.21 x10^3/uL (1.8-6.8); SEGS% (MANUAL) 88 % (42-75)
[2019-01-10 12:44] LABS: ANISOCYTOSIS 2+; HYPOCHROMIA 1+; MICROCYTOSIS 1+
[2019-01-10 12:45] LABS: OVALOCYTES 1+
[2019-01-10 12:47] LABS: <PLATELET ESTIMATE> ADEQUATE; <PLT MORPHOLOGY> NORMAL PLT MORPH; ECHINOCYTES 1+; PMNS WITH VACUOLES 1+
[2019-01-10 14:40] VITALS: BP 112/80
[2019-01-10] MEDS: ONDANSETRON 2MG/ML, 2ML IVPB PRN (16:28)
[2019-01-10 20:23] VITALS: BP 102/70
[2019-01-11] MEDS: D5%-LR+KCL 20MEQ 1,000 ML IV SCH (00:37)
[2019-01-11 01:50] VITALS: BP 116/77
[2019-01-11] MEDS: PIPERACILLIN/TAZO/PMX 3.375GM 50 ML IV SCH ×4 (02:31→20:37)
[2019-01-11 06:14] LABS: ANION GAP 7 mmol/L (5-15); CALCIUM 8.4 mg/dL (8.5-10.1); CHLORIDE 110 mmol/L (98-107)
[2019-01-11 07:08] VITALS: BP 120/84
[2019-01-11] MEDS: FAMOTIDINE 20 MG/2 ML IVPush SCH ×2 (07:40→20:37)
[2019-01-11] MEDS: METRONIDAZOLE PMX 500MG/100ML 100 ML IV SCH ×2 (07:40→15:27)
[2019-01-11] MEDS ORDERED: HEPARIN 5,000 UNITS/ML, 1ML IV ONE (09:00)
[2019-01-11] MEDS ORDERED: HEPARIN 25,000 UNITS/500ML PMX 500 ML IV PRN (09:00)
[2019-01-11] MEDS ORDERED: SODIUM PHOSPHATE 30 MMOL in SODIUM CHLORIDE 0.9% 500 ML IV ONE (13:00)
[2019-01-11 14:20] VITALS: BP 153/99
[2019-01-11] MEDS: HEPARIN 5,000 UNITS/ML, 1ML IV PRN (18:10)
[2019-01-11 19:25] VITALS: BP 126/88
[2019-01-12] VITALS (14 sets, daily range): BP systolic 131–159; BP diastolic 84–111
[2019-01-12] MEDS: METRONIDAZOLE PMX 500MG/100ML 100 ML IV SCH ×4 (00:12→23:58)
[2019-01-12] MEDS: HEPARIN 5,000 UNITS/ML, 1ML IV PRN (01:10)
[2019-01-12] MEDS: PIPERACILLIN/TAZO/PMX 3.375GM 50 ML IV SCH ×4 (02:28→20:30)
[2019-01-12] MEDS ORDERED: LACTATED RINGERS 1,000 ML IV SCH (06:30)
[2019-01-12 07:13] LABS: CHLORIDE 111 mmol/L (98-107)
[2019-01-12 07:17] LABS: MEAN CORPUSCULAR HEMOGLOBIN 22.2 pg (27.0-34.8); MEAN CORPUSCULAR HGB CONC 30.7 g/dL (32.4-35.8); MEAN CORPUSCULAR VOLUME 72.6 fL (80-100); MEAN PLATELET VOLUME 7.8 fL (7.4-10.4); PLATELET COUNT 375 x10^3/uL (130-400); RED BLOOD COUNT 3.06 x10^6/uL (3.82-5.3); RED CELL DISTRIBUTION WIDTH 30.4 % (9.6-15.2)
[2019-01-12 07:20] LABS: ALANINE AMINOTRANSFERASE 12 U/L (12-78); ALBUMIN 1.9 g/dL (3.4-5.0); ALKALINE PHOSPHATASE 85 U/L (45-117); ANION GAP 4 mmol/L (5-15); BILIRUBIN,TOTAL 0.4 mg/dL (0.2-1.0); CALCIUM 8.1 mg/dL (8.5-10.1); CREATININE 0.86 mg/dL (0.55-1.02); TOTAL PROTEIN 5.4 g/dL (6.4-8.2)
[2019-01-12 07:29] LABS: MD YES
[2019-01-12 07:31] LABS: BAND#(MANUAL) 0.09 x10^3/uL; BANDS%(MANUAL) 1 % (0-7); EOS#(MANUAL) 0.18 x10^3/uL (0.0-0.4); EOS% (MANUAL) 2 % (1-7); LYMPH#(MANUAL) 1.16 x10^3/uL (1-3.4); LYMPHS% (MANUAL) 13 % (22-44); MONOS#(MANUAL) 0.27 x10^3/uL (0.3-2.7); MONOS% (MANUAL) 3 % (2-9); REACTIVE LYMPHS # (MANUAL) 0.09 x10^3/uL (0-0); REACTIVE LYMPHS % (MANUAL) 1 % (0-0); SEG#(MANUAL) 7.12 x10^3/uL (1.8-6.8); SEGS% (MANUAL) 80 % (42-75)
[2019-01-12 07:32] LABS: ANISOCYTOSIS 2+; HYPOCHROMIA 1+; MICROCYTOSIS 1+; TOXIC GRAN 1+
[2019-01-12 07:33] LABS: OVALOCYTES 1+
[2019-01-12 07:34] LABS: TARGET CELLS 1+
[2019-01-12 07:35] LABS: <PLATELET ESTIMATE> ADEQUATE; <PLT MORPHOLOGY> NORMAL PLT MORPH
[2019-01-12] MEDS: FAMOTIDINE 20 MG/2 ML IVPush SCH ×2 (09:00→20:26)
[2019-01-12 11:27] LABS: MICROSCOPIC INDICATED
[2019-01-12 11:35] LABS: CULTURE INDICATED? YES
[2019-01-12] MEDS ORDERED: hydrALAzine 20 MG/ML, 1ML IV ONE (13:30)
[2019-01-12] MEDS ORDERED: HYDROmorphone PCA 30 MG/30 ML IV PRN (21:30)
[2019-01-13] VITALS (9 sets, daily range): BP systolic 148–167; BP diastolic 87–121
[2019-01-13] MEDS: PIPERACILLIN/TAZO/PMX 3.375GM 50 ML IV SCH ×2 (02:47→10:49)
[2019-01-13 05:33] LABS: MEAN CORPUSCULAR HEMOGLOBIN 24.5 pg (27.0-34.8); MEAN CORPUSCULAR HGB CONC 32.6 g/dL (32.4-35.8); MEAN CORPUSCULAR VOLUME 75.2 fL (80-100); MEAN PLATELET VOLUME 7.5 fL (7.4-10.4); PLATELET COUNT 374 x10^3/uL (130-400); RED BLOOD COUNT 4.11 x10^6/uL (3.82-5.3); RED CELL DISTRIBUTION WIDTH 27.4 % (9.6-15.2)
[2019-01-13 05:34] LABS: ANION GAP 8 mmol/L (5-15); CALCIUM 8.5 mg/dL (8.5-10.1); CHLORIDE 108 mmol/L (98-107); CREATININE 0.74 mg/dL (0.55-1.02)
[2019-01-13 06:28] LABS: MD YES
[2019-01-13 06:30] LABS: ANISOCYTOSIS 2+; HYPOCHROMIA 1+; LYMPH#(MANUAL) 1.19 x10^3/uL (1-3.4); LYMPHS% (MANUAL) 10 % (22-44); MICROCYTOSIS 1+; MONOS#(MANUAL) 0.83 x10^3/uL (0.3-2.7); MONOS% (MANUAL) 7 % (2-9); SEG#(MANUAL) 9.88 x10^3/uL (1.8-6.8); SEGS% (MANUAL) 83 % (42-75)
[2019-01-13] MEDS ORDERED: LACTATED RINGERS 1,000 ML IV SCH (06:30)
[2019-01-13 06:31] LABS: OVALOCYTES 1+; TARGET CELLS 1+
[2019-01-13 06:32] LABS: <PLATELET ESTIMATE> ADEQUATE; <PLT MORPHOLOGY> NORMAL PLT MORPH
[2019-01-13] MEDS: METRONIDAZOLE PMX 500MG/100ML 100 ML IV SCH (08:26)
[2019-01-13] MEDS: FAMOTIDINE 20 MG/2 ML IVPush SCH (08:27)
[2019-01-13 11:07] LABS: CULTURE INDICATED? YES; MICROSCOPIC INDICATED
[2019-01-13] MEDS: ONDANSETRON 2MG/ML, 2ML IVPB PRN (14:26)
[2019-01-13] MEDS ORDERED: PIPERACILLIN/TAZO/PMX 4.5GM 100 ML IV SCH ×2 (14:30→15:00)
[2019-01-13] MEDS ORDERED: hydrALAzine 20 MG/ML, 1ML IV ONE (15:00)
[2019-01-13] MEDS: AMLODIPINE 5 MG TABLET PO SCH (15:50)
[2019-01-13] MEDS: CEPHALEXIN 500 MG CAPSULE PO SCH ×2 (15:50→20:19)
[2019-01-13] MEDS: OXYcodone IR 5MG TABLET PO PRN (18:21)
[2019-01-13] MEDS ORDERED: HYDROmorphone 2 MG/ML, 1ML ONE (20:11)
[2019-01-13] MEDS: HYDROmorphone 1 MG/ML, 1ML AMP IV PRN (20:16)
[2019-01-13] MEDS: LISINOPRIL 5 MG TABLET PO SCH (20:19)
[2019-01-13] MEDS: PROCHLORPERAZINE 5 MG/ML, 2ML IVPush PRN (20:30)
[2019-01-14] VITALS (7 sets, daily range): BP systolic 125–166; BP diastolic 87–113
[2019-01-14] MEDS: OXYcodone IR 5MG TABLET PO PRN ×4 (01:37→20:43)
[2019-01-14] MEDS ORDERED: hydrALAzine 20 MG/ML, 1ML IV ONE ×2 (02:00→15:00)
[2019-01-14] MEDS ORDERED: HYDROmorphone 2 MG/ML, 1ML ONE ×3 (05:28→22:11)
[2019-01-14] MEDS: PANTOPROZOLE 40MG TABLET PO SCH (05:33)
[2019-01-14] MEDS: CEPHALEXIN 500 MG CAPSULE PO SCH ×4 (05:33→20:43)
[2019-01-14] MEDS: HYDROmorphone 1 MG/ML, 1ML AMP IV PRN ×3 (05:34→22:13)
[2019-01-14 06:10] LABS: CHLORIDE 105 mmol/L (98-107)
[2019-01-14 06:18] LABS: ANION GAP 11 mmol/L (5-15); CALCIUM 8.7 mg/dL (8.5-10.1); CREATININE 0.55 mg/dL (0.55-1.02)
[2019-01-14 06:38] LABS: MEAN CORPUSCULAR HEMOGLOBIN 24.1 pg (27.0-34.8); MEAN CORPUSCULAR HGB CONC 31.8 g/dL (32.4-35.8); MEAN CORPUSCULAR VOLUME 75.9 fL (80-100); MEAN PLATELET VOLUME 8.1 fL (7.4-10.4); PLATELET COUNT 497 x10^3/uL (130-400); RED BLOOD COUNT 4.82 x10^6/uL (3.82-5.3); RED CELL DISTRIBUTION WIDTH 27.3 % (9.6-15.2)
[2019-01-14 07:32] LABS: MD YES
[2019-01-14 07:40] LABS: EOS#(MANUAL) 0.14 x10^3/uL (0.0-0.4); EOS% (MANUAL) 1 % (1-7); METAMYELOCYTES# (MANUAL) 0.14 x10^3/uL (0-0); METAMYELOCYTES% (MANUAL) 1 % (0-1); MONOS#(MANUAL) 1.86 x10^3/uL (0.3-2.7); MONOS% (MANUAL) 13 % (2-9); SEG#(MANUAL) 11.01 x10^3/uL (1.8-6.8); SEGS% (MANUAL) 77 % (42-75)
[2019-01-14 07:42] LABS: LYMPH#(MANUAL) 0.86 x10^3/uL (1-3.4); LYMPHS% (MANUAL) 6 % (22-44); REACTIVE LYMPHS # (MANUAL) 0.29 x10^3/uL (0-0); REACTIVE LYMPHS % (MANUAL) 2 % (0-0)
[2019-01-14 07:43] LABS: ANISOCYTOSIS 2+; HYPOCHROMIA 1+; MICROCYTOSIS 1+
[2019-01-14 07:44] LABS: OVALOCYTES 1+; POLYCHROMASIA 1+
[2019-01-14 07:45] LABS: <PLATELET ESTIMATE> INCREASED; <PLT MORPHOLOGY> NORMAL PLT MORPH
[2019-01-14] MEDS: AMLODIPINE 5 MG TABLET PO SCH (08:10)
[2019-01-14] MEDS: LISINOPRIL 5 MG TABLET PO SCH ×2 (08:11→20:43)
[2019-01-14] MEDS: HEPARIN 25,000 UNITS/500ML PMX 500 ML IV PRN (12:57)
[2019-01-14] MEDS: HEPARIN 5,000 UNITS/ML, 1ML IV PRN (20:33)
[2019-01-15 00:57] VITALS: BP 128/87
[2019-01-15] MEDS ORDERED: HYDROmorphone 2 MG/ML, 1ML ONE ×4 (02:26→19:45)
[2019-01-15] MEDS: HYDROmorphone 1 MG/ML, 1ML AMP IV PRN ×4 (02:29→19:48)
[2019-01-15 03:10] LABS: MEAN CORPUSCULAR HEMOGLOBIN 24.4 pg (27.0-34.8); MEAN CORPUSCULAR HGB CONC 32.2 g/dL (32.4-35.8); MEAN CORPUSCULAR VOLUME 75.8 fL (80-100); MEAN PLATELET VOLUME 8.1 fL (7.4-10.4); PLATELET COUNT 528 x10^3/uL (130-400); RED BLOOD COUNT 4.89 x10^6/uL (3.82-5.3); RED CELL DISTRIBUTION WIDTH 28.2 % (9.6-15.2)
[2019-01-15 03:13] LABS: ALANINE AMINOTRANSFERASE 8 U/L (12-78); ALBUMIN 1.9 g/dL (3.4-5.0); ANION GAP 3 mmol/L (5-15); CALCIUM 8.5 mg/dL (8.5-10.1); CHLORIDE 103 mmol/L (98-107)
[2019-01-15 03:16] LABS: ALKALINE PHOSPHATASE 92 U/L (45-117); BILIRUBIN,TOTAL 0.3 mg/dL (0.2-1.0); CREATININE 0.69 mg/dL (0.55-1.02); TOTAL PROTEIN 5.9 g/dL (6.4-8.2)
[2019-01-15] MEDS: HEPARIN 5,000 UNITS/ML, 1ML IV PRN ×3 (03:20→18:49)
[2019-01-15 03:28] LABS: MD YES
[2019-01-15 03:33] LABS: ANISOCYTOSIS 2+; EOS#(MANUAL) 0.14 x10^3/uL (0.0-0.4); EOS% (MANUAL) 1 % (1-7); LYMPH#(MANUAL) 3.22 x10^3/uL (1-3.4); LYMPHS% (MANUAL) 23 % (22-44); MONOS% (MANUAL) 10 % (2-9); POLYCHROMASIA 1+; REACTIVE LYMPHS # (MANUAL) 0.56 x10^3/uL (0-0); REACTIVE LYMPHS % (MANUAL) 4 % (0-0); SEG#(MANUAL) 8.68 x10^3/uL (1.8-6.8); SEGS% (MANUAL) 62 % (42-75)
[2019-01-15 03:34] LABS: <PLATELET ESTIMATE> INCREASED; <PLT MORPHOLOGY> NORMAL PLT MORPH; OVALOCYTES 1+; TARGET CELLS 1+
[2019-01-15] MEDS: CEPHALEXIN 500 MG CAPSULE PO SCH ×4 (05:41→20:57)
[2019-01-15] MEDS: OXYcodone IR 5MG TABLET PO PRN ×2 (05:41→12:18)
[2019-01-15] MEDS: PANTOPROZOLE 40MG TABLET PO SCH (05:41)
[2019-01-15 07:10] VITALS: BP 133/91
[2019-01-15] MEDS: LISINOPRIL 5 MG TABLET PO SCH ×2 (08:35→20:57)
[2019-01-15] MEDS: AMLODIPINE 5 MG TABLET PO SCH (08:36)
[2019-01-15] MEDS: HEPARIN 25,000 UNITS/500ML PMX 500 ML IV PRN (12:54)
[2019-01-15 15:08] VITALS: BP 144/95
[2019-01-15 19:32] VITALS: BP 145/99
[2019-01-15 20:56] VITALS: BP 138/95
[2019-01-16] MEDS: OXYcodone IR 5MG TABLET PO PRN ×3 (00:30→11:49)
[2019-01-16 00:41] VITALS: BP 153/103
[2019-01-16 01:07] LABS: ANION GAP 7 mmol/L (5-15); CALCIUM 8.7 mg/dL (8.5-10.1); CHLORIDE 103 mmol/L (98-107); CREATININE 0.69 mg/dL (0.55-1.02)
[2019-01-16 01:08] LABS: BASOPHILS # (AUTO) 0.01 x10^3/uL (0-0.1); BASOPHILS % (AUTO) 0 % (0-1); EOSINOPHILS # (AUTO) 0.11 x10^3/uL (0-0.4); EOSINOPHILS % (AUTO) 1 % (1-7); LYMPHOCYTES # (AUTO) 1.74 x10^3/uL (1-3.4); LYMPHOCYTES % (AUTO) 14 % (22-44); MD MORPH REVIEW ONLY; MEAN CORPUSCULAR HEMOGLOBIN 24.5 pg (27.0-34.8); MEAN CORPUSCULAR HGB CONC 32.1 g/dL (32.4-35.8); MEAN CORPUSCULAR VOLUME 76.2 fL (80-100); MEAN PLATELET VOLUME 8.4 fL (7.4-10.4); MONOCYTES # (AUTO) 1.22 x10^3/uL (0.2-0.8); MONOCYTES % (AUTO) 9 % (2-9); NEUTROPHILS # (AUTO) 9.85 x10^3/uL (1.8-6.8); NEUTROPHILS % (AUTO) 76 % (42-75); PLATELET COUNT 529 x10^3/uL (130-400); RED BLOOD COUNT 4.73 x10^6/uL (3.82-5.3); RED CELL DISTRIBUTION WIDTH 28.1 % (9.6-15.2)
[2019-01-16 02:55] LABS: ANISOCYTOSIS 2+; HYPOCHROMIA 1+
[2019-01-16 02:56] LABS: SPHEROCYTES 1+
[2019-01-16 02:57] LABS: <PLATELET ESTIMATE> INCREASED; <PLT MORPHOLOGY> NORMAL PLT MORPH
[2019-01-16 02:58] LABS: MICROCYTOSIS 1+; OVALOCYTES 1+
[2019-01-16] MEDS ORDERED: HYDROmorphone 2 MG/ML, 1ML ONE ×2 (03:30→09:03)
[2019-01-16] MEDS: HYDROmorphone 1 MG/ML, 1ML AMP IV PRN ×2 (03:34→09:08)
[2019-01-16] MEDS: CEPHALEXIN 500 MG CAPSULE PO SCH ×2 (05:46→09:07)
[2019-01-16] MEDS: PANTOPROZOLE 40MG TABLET PO SCH (05:46)
[2019-01-16 09:05] VITALS: BP 144/99
[2019-01-16] MEDS: LISINOPRIL 5 MG TABLET PO SCH (09:07)
[2019-01-16] MEDS: AMLODIPINE 5 MG TABLET PO SCH (09:08)
[2019-01-16] MEDS ORDERED: PANT40TA5 PO (13:01)
[2019-01-16] MEDS ORDERED: AMLO-150 PO (13:01)
[2019-01-16] MEDS ORDERED: LISI5TAB7 PO (13:01)
[2019-01-16] MEDS ORDERED: CEPH-376 PO (13:01)
== END 2019-01-16 14:25 | disposition home or self-care (01) | DRG 862 ==
LOC: ED 10:13 → EDIP 13:47 → 4WST 01-09 05:21
PROVIDERS: ADMIT Internal Medicine; ATTEND Internal Medicine
PROC: 0W9J30Z Drainage of Pelvic Cavity with Drainage Device, Percutaneous Approach (ICD-10-PCS; principal; 2019-01-08)
PROC: 0T9B70Z Drainage of Bladder with Drainage Device, Via Natural or Artificial Opening (ICD-10-PCS; 2019-01-08)
PROC: 30233N1 Transfusion of Nonautologous Red Blood Cells into Peripheral Vein, Percutaneous Approach (ICD-10-PCS; 2019-01-12)
DX: T81.40XA Infection following a procedure, unspecified, initial encounter (principal); A41.9 Sepsis, unspecified organism; N17.0 Acute kidney failure with tubular necrosis; N99.841 Postprocedural hematoma of a genitourinary system organ or structure following other procedure; D62 Acute posthemorrhagic anemia; Y83.8 Other surgical procedures as the cause of abnormal reaction of the patient, or of later complication, without mention of misadventure at the time of the procedure; Y92.89 Other specified places as the place of occurrence of the external cause; N73.8 Other specified female pelvic inflammatory diseases; B95.2 Enterococcus as the cause of diseases classified elsewhere; E83.39 Other disorders of phosphorus metabolism; H91.20 Sudden idiopathic hearing loss, unspecified ear; H91.93 Unspecified hearing loss, bilateral; I10 Essential (primary) hypertension; K80.20 Calculus of gallbladder without cholecystitis without obstruction; N14.1 Nephropathy induced by other drugs, medicaments and biological substances; N73.9 Female pelvic inflammatory disease, unspecified; T50.8X5A Adverse effect of diagnostic agents, initial encounter; Z79.01 Long term (current) use of anticoagulants; Z79.899 Other long term (current) drug therapy; Z80.3 Family history of malignant neoplasm of breast; Z80.49 Family history of malignant neoplasm of other genital organs; Z82.49 Family history of ischemic heart disease and other diseases of the circulatory system; Z82.5 Family history of asthma and other chronic lower respiratory diseases; Z83.3 Family history of diabetes mellitus; Z86.711 Personal history of pulmonary embolism; Z86.718 Personal history of other venous thrombosis and embolism; Z90.711 Acquired absence of uterus with remaining cervical stump; Z95.828 Presence of other vascular implants and grafts
CPT/HCPCS: 36415; 74021; 84145; 96361; 99285; J3490; 49406; 70553; 71045; 74177; 76770; 80048; 80053; 81001; 82272; 82436; 82550; 82570; 82962; 83605; 83690; 83735; 83935; 84100; 84133; 84156; 84300; 85014; 85018; 85025; 85520; 85610; 85730; 86850; 86900; 86923; 87040; 87070; 87075; 87077; 87086; 87205; 93005; 96374; 96375; 96376; 99156; 99157; A9585; G0378; J1170; J1644; J2250; J2405; J2543; J3010; Q9967; C1729; C1769; J0360; J0780; J2310; J3475; J3480; J7030; J7040; J7120; P9016

== ENCOUNTER 2019-01-25 15:54 | Emergency (ER) | payer OTHER ==
[~2019-01-25] VITALS: Ht 162.6 cm; Wt 69.0 kg
[~2019-01-25 15:54] MED LIST changes: +AMLO-150 PO; +CEPH-376 PO; +LISI5TAB7 PO; +PANT40TA5 PO; +RIVA15TA PO
[2019-01-25] MEDS ORDERED: ASPIRIN 81 MG TABLET CHEW PO ONE (16:30)
[2019-01-25 16:50] LABS: MEAN CORPUSCULAR HEMOGLOBIN 24.1 pg (27.0-34.8); MEAN CORPUSCULAR VOLUME 75.5 fL (80-100); MEAN PLATELET VOLUME 7.4 fL (7.4-10.4); PLATELET COUNT 673 x10^3/uL (130-400); RED BLOOD COUNT 4.84 x10^6/uL (3.82-5.3); RED CELL DISTRIBUTION WIDTH 27.2 % (9.6-15.2)
[2019-01-25 17:03] LABS: ALANINE AMINOTRANSFERASE 11 U/L (12-78); ALBUMIN 3.1 g/dL (3.4-5.0); ANION GAP 6 mmol/L (5-15); CHLORIDE 100 mmol/L (98-107); CREATININE 0.88 mg/dL (0.55-1.02)
[2019-01-25 17:07] LABS: ALKALINE PHOSPHATASE 123 U/L (45-117); BILIRUBIN,TOTAL 0.5 mg/dL (0.2-1.0); TOTAL PROTEIN 8.6 g/dL (6.4-8.2); TROPONIN I < 0.015 ng/mL (0.000-0.045)
[2019-01-25 17:16] VITALS: BP 142/78
--- NOTE | 2019-01-25 17:16 | NUR ---
THIS IS A 48 Y/O FEMALE ARRIVING TO ED FOR SOB WITH ABD PAIN. PT REPORTSW EXTENSIVE HX OF BLOOD CLOTS AND NEEDING A FLILTER AND ANTICOAG THERAPY. PT REPORTS HER PAIN STARTED LAST NIGHT AND HAS HAD NO RELIEF. PT DENIES ANY TRUAMA OR BLOOD IN STOOL. PT REPORTS TAKING ALL PERSCRIBED MEDICAITONS. PT APPEARS UNCOFMROTABLE BUT HAS NO OTHER SYMPTOMS OF RESP DISTRESS AT THIS TIME.
[2019-01-25] MEDS ORDERED: ONDANSETRON 2MG/ML, 2ML ONE (17:19)
[2019-01-25] MEDS ORDERED: ASPIRIN 81 MG TABLET CHEW ONE (17:19)
[2019-01-25] MEDS ORDERED: MORPHINE SULFATE 4 MG/ML, 1ML ONE (17:20)
[2019-01-25 17:40] LABS: BASOPHILS # (AUTO) 0.08 x10^3/uL (0-0.1); BASOPHILS % (AUTO) 1 % (0-1); EOSINOPHILS # (AUTO) 0.13 x10^3/uL (0-0.4); EOSINOPHILS % (AUTO) 1 % (1-7); LYMPHOCYTES # (AUTO) 1.65 x10^3/uL (1-3.4); LYMPHOCYTES % (AUTO) 16 % (22-44); MD MORPH REVIEW ONLY; MONOCYTES % (AUTO) 6 % (2-9); NEUTROPHILS # (AUTO) 8.09 x10^3/uL (1.8-6.8); NEUTROPHILS % (AUTO) 77 % (42-75)
[2019-01-25 17:41] LABS: ANISOCYTOSIS 2+
[2019-01-25 17:42] LABS: <PLATELET ESTIMATE> INCREASED; LARGE PLATELETS 1+; OVALOCYTES 1+; TARGET CELLS 1+
[2019-01-25] MEDS ORDERED: MORPHINE SULFATE 4 MG/ML, 1ML IVPush ONE (18:00)
[2019-01-25] MEDS ORDERED: ONDANSETRON 2MG/ML, 2ML IVPush ONE (18:00)
--- NOTE | 2019-01-25 18:45 | NUR ---
BREAK RN: RESULTS BACK. PT PLACED UP FOR RECHECK.
--- NOTE | 2019-01-25 20:08 | NUR ---
Patient/Caregiver given discharge instructions and they have confirmed that they understand the instructions. Patient ambulatory with steady gait.
== END 2019-01-25 20:11 | disposition home or self-care (01) ==
LOC: ED 20:05
DX: K85.00 Idiopathic acute pancreatitis without necrosis or infection (principal); R06.00 Dyspnea, unspecified; I10 Essential (primary) hypertension; F41.1 Generalized anxiety disorder; Z90.710 Acquired absence of both cervix and uterus
CPT/HCPCS: 36415; 71045; 71275; 80053; 83690; 83880; 84484; 85025; 93005; 96374; 96375; 99284; J2405

== ENCOUNTER → 2019-03-02 | Outpatient (CLI) | payer OTHER ==
[~2019-03-02] MED LIST changes: +DOCU-131 PO
== END | disposition home or self-care (01) ==
LOC: RAD 15:03
PROVIDERS: ATTEND Neurological Surgery
DX: M50.00 Cervical disc disorder with myelopathy, unspecified cervical region (principal); M47.12 Other spondylosis with myelopathy, cervical region
CPT/HCPCS: 72050

== ENCOUNTER 2019-03-17 03:30 | Emergency (ER) | payer OTHER ==
[~2019-03-17] VITALS: Ht 162.6 cm; Wt 66.0 kg
--- NOTE | 2019-03-17 03:58 | NUR ---
ASSUMED CARE OF PATIENT. PATIENT REPORTS SOME ANXIETY. REPORTS PT HAS BEEN DRINKING TONIGHT. PT STATSE, "MY HEART IS RACING." PT IS SINUS TACH ON THE MONITOR. VS STABLE. CALL LIGHT IN PLACE. WILL CONTIUE TO MONITOR.
[2019-03-17 04:27] LABS: INTERNATIONAL NORMALIZED RATIO 1.15 (0.93-1.1)
[2019-03-17 04:29] LABS: ALANINE AMINOTRANSFERASE 15 U/L (12-78); ALBUMIN 3.8 g/dL (3.4-5.0); ANION GAP 7 mmol/L (5-15); CALCIUM 8.9 mg/dL (8.5-10.1); CHLORIDE 110 mmol/L (98-107); CREATININE 0.94 mg/dL (0.55-1.02)
[2019-03-17 04:33] LABS: ALKALINE PHOSPHATASE 123 U/L (45-117); BILIRUBIN,TOTAL 0.3 mg/dL (0.2-1.0); TROPONIN I < 0.015 ng/mL (0.000-0.045)
[2019-03-17 04:36] LABS: MEAN CORPUSCULAR HEMOGLOBIN 25.4 pg (27.0-34.8); MEAN CORPUSCULAR HGB CONC 31.4 g/dL (32.4-35.8); MEAN CORPUSCULAR VOLUME 80.9 fL (80-100); MEAN PLATELET VOLUME 7.9 fL (7.4-10.4); PLATELET COUNT 301 x10^3/uL (130-400); RED BLOOD COUNT 4.89 x10^6/uL (3.82-5.3)
--- NOTE | 2019-03-17 04:48 | NUR ---
PT RESTING IN ROOM. REGULAR RESP. NO ACUTE DISTRESS NOTED. CALL LIGHT IN PLACE. WILL CONTINUE TO MONITOR.
[2019-03-17 05:07] LABS: BASOPHILS # (AUTO) 0.01 x10^3/uL (0-0.1); BASOPHILS % (AUTO) 0 % (0-1); EOSINOPHILS # (AUTO) 0.02 x10^3/uL (0-0.4); EOSINOPHILS % (AUTO) 1 % (1-7); LYMPHOCYTES # (AUTO) 1.22 x10^3/uL (1-3.4); LYMPHOCYTES % (AUTO) 39 % (22-44); MD MORPH REVIEW ONLY; MONOCYTES # (AUTO) 0.17 x10^3/uL (0.2-0.8); MONOCYTES % (AUTO) 6 % (2-9); NEUTROPHILS # (AUTO) 1.72 x10^3/uL (1.8-6.8); NEUTROPHILS % (AUTO) 55 % (42-75)
--- NOTE | 2019-03-17 05:07 | NUR ---
DR MOODY IN ROOM
[2019-03-17 05:08] LABS: HYPOCHROMIA 1+
[2019-03-17 05:09] VITALS: BP 130/99
[2019-03-17 05:09] LABS: ANISOCYTOSIS 1+
[2019-03-17 05:10] LABS: <PLATELET ESTIMATE> ADEQUATE; <PLT MORPHOLOGY> NORMAL PLT MORPH; OVALOCYTES 1+
== END 2019-03-17 05:30 | disposition home or self-care (01) ==
LOC: ED 05:25
DX: R07.89 Other chest pain (principal); R06.00 Dyspnea, unspecified; F41.1 Generalized anxiety disorder; I10 Essential (primary) hypertension; F10.120 Alcohol abuse with intoxication, uncomplicated; Z90.49 Acquired absence of other specified parts of digestive tract; Z86.718 Personal history of other venous thrombosis and embolism
CPT/HCPCS: 36415; 71045; 80053; 84484; 85025; 85610; 85730; 93005; 99284; Q0177

== ENCOUNTER 2020-04-25 11:52 | Emergency (ER) | payer SELFPAY ==
[~2020-04-25] VITALS: Ht 160 cm; Wt 75.5 kg
[2020-04-25 12:38] LABS: BASOPHILS # (AUTO) 0.01 x10^3/uL (0-0.1); BASOPHILS % (AUTO) 0 % (0-1); EOSINOPHILS # (AUTO) 0.05 x10^3/uL (0-0.4); EOSINOPHILS % (AUTO) 1 % (1-7); LYMPHOCYTES % (AUTO) 44 % (22-44); MD NO; MEAN CORPUSCULAR HEMOGLOBIN 29.5 pg (27.0-34.8); MEAN CORPUSCULAR HGB CONC 32.8 g/dL (32.4-35.8); MEAN CORPUSCULAR VOLUME 89.8 fL (80-100); MEAN PLATELET VOLUME 7.7 fL (7.4-10.4); MONOCYTES # (AUTO) 0.34 x10^3/uL (0.2-0.8); MONOCYTES % (AUTO) 9 % (2-9); NEUTROPHILS # (AUTO) 1.67 x10^3/uL (1.8-6.8); NEUTROPHILS % (AUTO) 46 % (42-75); PLATELET COUNT 235 x10^3/uL (130-400); RED BLOOD COUNT 4.73 x10^6/uL (3.82-5.3); RED CELL DISTRIBUTION WIDTH 13.4 % (9.6-15.2)
[2020-04-25 12:48] LABS: ALANINE AMINOTRANSFERASE 24 U/L (12-78); ALBUMIN 4.1 g/dL (3.4-5.0); ANION GAP 4 mmol/L (5-15); CALCIUM 9.8 mg/dL (8.5-10.1); CHLORIDE 106 mmol/L (98-107); CREATININE 1.22 mg/dL (0.55-1.02)
[2020-04-25 12:51] LABS: ALKALINE PHOSPHATASE 159 U/L (45-117); BILIRUBIN,TOTAL 0.5 mg/dL (0.2-1.0)
[2020-04-25 13:08] VITALS: BP 143/95
== END 2020-04-25 14:13 | disposition home or self-care (01) ==
LOC: ED 13:36
DX: R00.2 Palpitations (principal); R20.2 Paresthesia of skin; H53.8 Other visual disturbances; R42 Dizziness and giddiness; R53.1 Weakness; I10 Essential (primary) hypertension
CPT/HCPCS: 36415; 70450; 71045; 80053; 83735; 85025; 93005; 99285